=== PATIENT | male | born 1940 | race African-American/Black ===

== ENCOUNTER 2018-11-26 14:01 | Inpatient (IN) ==
--- NOTE | 2018-11-26 14:34 | Emergency Department Note ---
Disposition Clinical Impression: Sinus bradycardia, Dehydration, Acute renal insufficiency Disposition: Admitted As Inpatient Condition: Fair Forms: ED Satisfaction Letter Time of Disposition: 15:56 General Adult HPI - General Chief complaint: ED Syncope Stated complaint: Low BP Time Seen by Provider: 11/26/18 14:11 Source: EMS - History of Present Illness Pain Scale: 0 - Related Data Home Medications Medication Instructions Recorded Confirmed Acetaminophen [Tylenol] 650 mg PO Q6HR 09/19/18 09/19/18 Allopurinol [Zyloprim 100 MG] 100 mg PO DAILY 09/19/18 09/19/18 Fluticasone/Salmeterol [Advair 1 each IH BID 09/19/18 09/19/18 500-50 Diskus] Furosemide [Lasix] 20 mg PO DAILY 09/19/18 09/19/18 Gabapentin [Neurontin] 100 mg PO BID 09/19/18 09/19/18 HYDROcodone/Acet 5/325 mg [[place] 1 tab PO Q6H PRN 09/19/18 09/19/18 5-325 mg] Ibuprofen [Motrin] 400 mg PO BID 09/19/18 09/19/18 Losartan Potassium [Cozaar] 100 mg PO DAILY 09/19/18 09/19/18 Metoprolol Tartrate [Lopressor] 50 mg PO BID 09/19/18 09/19/18 Mirtazapine [Remeron] 15 mg PO HS 09/19/18 09/19/18 Oxybutynin Chloride [Ditropan Xl] 5 mg PO DAILY 09/19/18 09/19/18 Simvastatin [Zocor] 10 mg PO DAILY 09/19/18 09/19/18 SitaGLIPtin [Januvia] 100 mg PO DAILY 09/19/18 09/19/18 Tamsulosin HCl [Flomax] 0.4 mg PO DAILY 09/19/18 09/19/18 Tizanidine HCl 2 mg PO DAILY 09/19/18 09/19/18 Umeclidinium [place] [Incruse 62.5 mcg IH DAILY 09/19/18 09/19/18 Ellipta] carBAMazepine [CarBAMazepine] 100 mg PO BID 09/19/18 09/19/18 Allergies Allergy/AdvReac Type Severity Reaction Status Date / Time No Known Allergies Allergy Verified 02/18/15 14:38 Past Medical History - Past Medical History Medical history: Reports: asthma, COPD, CVA, diabetes, hypertension Surgical history: Reports: no surgical history Psychiatric history: Reports: no psych history - Social History Smoking Status: Current every day smoker Smokeless Tobacco Status: No Alcohol use: Reports: none Drug use: Reports: none Physical Exam - General General appearance: alert Course Vital Signs Temperature 97.7 F 11/26/18 14:19 Pulse Rate 92 11/26/18 14:19 Respiratory Rate 20 11/26/18 14:19 Blood Pressure 111/67 11/26/18 14:19 O2 Sat by Pulse Oximetry 94 11/26/18 14:19 Temperature 97.7 F 11/26/18 14:19 Pulse Rate 46 11/26/18 15:38 Respiratory Rate 18 11/26/18 15:38 Blood Pressure 103/54 11/26/18 15:38 O2 Sat by Pulse Oximetry 93 11/26/18 15:38 Oxygen Delivery Oxygen Delivery Nasal Cannula Medical Decision Making - Lab Data Result diagrams: 11/26/18 14:47 11/26/18 14:47 Lab Results 11/26/18 11/26/18 Range/Units 14:47 14:47 WBC 7.3 (4.3-11.1) K/mcL RBC 3.57 L (4.19-5.50) M/mcL Hgb 11.3 L (12.9-16.9) g/dL Hct 35.9 L (37.5-50.1) % MCV 100.6 H (83.0-100.0) fL MCH 31.7 (28.0-33.3) pg MCHC 31.5 L (31.6-35.5) g/dL RDW 14.3 (11.5-14.5) % Plt Count 141 (140-400) K/mcL MPV 11.4 (9.4-12.4) fL Immature Gran % 0.3 (0-4) % Seg Neutrophils % 69.0 % Lymphocytes % 15.0 % Monocytes % 10.6 % Eosinophils % 4.4 % Basophils % 0.7 % Neutrophils # 5.0 (1.6-8.9) K/mcL Lymphocytes # 1.1 (0.6-4.6) K/mcL Monocytes # 0.8 (0.0-1.3) K/mcL Eosinophils # 0.3 (0.0-0.6) K/mcL Basophils # 0.1 (0.0-0.2) K/mcL Sodium 138 (136-145) mEq/L Potassium 4.5 (3.5-5.1) mEq/L Chloride 101 (98-107) mEq/L Carbon Dioxide 30 H (23-29) mEq/L BUN 44 H (8-23) mg/dL Creatinine 2.49 H (0.70-1.30) mg/dL Est GFR ( Amer) 31 L (> 60) Est GFR (Non-Af Amer) 25 L (> 60) BUN/Creatinine Ratio 18 (6-26) Glucose 88 (70-105) mg/dL Calculated Osmolality 297 (280-300) Calcium 9.8 (8.6-10.3) mg/dL Magnesium 2.5 (1.6-2.6) mg/dL Total Bilirubin 0.2 L (0.3-1.0) mg/dL Direct Bilirubin 0.1 (0.0-0.2) mg/dL Indirect Bilirubin 0.1 (0.0-1.2) mg/dL AST 21 (13-39) Units/L ALT 18 (7-52) Units/L Alkaline Phosphatase 103 (34-104) Units/L Troponin I < 0.03 (< 0.04) ng/mL Serum Total Protein 6.6 (6.4-8.9) g/dL Albumin 3.5 (3.5-5.7) g/dL Globulin 3.1 (2.4-3.5) g/dL Albumin/Globulin Ratio 1.1 (1.1-2.2) Carbamazepine 6 (4-12) mcg/mL Attestation Statement - Attestation Attestation: I have seen this patient with the resident physician, I have personally evaluated this patient. I had reviewed the chart and document dictation by the resident physician and aM in agreement with the information documented by the resident physician. Please see documentation by the resident physician for complete chart including past medical history, family medical history, review of systems, current history and physical and laboratory and imaging studies. I was present for all procedures, provided direct supervision for all procedures, was present for the entirety of all procedures and provided direct guidance during the procedures. Please see documentation by the resident physician for any procedures performed. I have reviewed all interpretations of EKGs, and reviewed all EKGs performed on patient's as well. I have also reviewed reports of imaging as provided by radiology. Patient sent to the emergency department for concerns for low blood pressure and low heart rate. Unclear as to the exact timing of this, care home was unable to provide that information. Patient without reported recent fevers or chills, but is being treated for wound of his left lower extremity. 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 They noticed that his blood pressure was in the 80s today and that his heart rate was in the 40s they report this is unusual for the patient. No reported medication changes no reported acute trauma. The patient according to the paramedics, when they first arrived seemed more out of it than usual but after they shook him and woke him up he returned back to his mental baseline they have seen him several times in the past and neck she just recently took him for a knee injection, and report that he seems to be at the same mental baseline he was at that point time. The patient denies any fevers chills cough sputum production chest pain or shortness of breath he denies any acute numbness or weakness. He is not a great historian in regards to recent issues, but is able to answer all questions and is oriented 3, discussed consideration of advanced cardiac life support with this patient, and resuscitation efforts, he reports that he would not want to be intubated, would not want CPR but would like everything up until that. Patient had an IV placed, placed on a monitor, given IV fluids. Upon arrival heart rate is in the mid 40s, appears to be sinus bradycardia, EKG without evidence of acute ischemia or dysrhythmia or hyperkalemia apart from the sinus bradycardia, there is no obvious widening, no peaked T waves no other evidence to suggest hyperkalemia. Blood pressure upon arrival to the room was 111/60. Basic laboratory studies were ordered chest x-ray was ordered. Tegretol level was ordered as the patient is on Tegretol. Tegretol level was 6. Several blood pressures remained with systolic above 100, he remained with heart rates in the 40s, but remained with a sinus bradycardia on the monitor and on EKG. Basic laboratory studies show acute renal injury, with a creatinine of 2.5 up from 1.0 from an outpatient from 2 weeks ago. Continued IV hydration. Electrolytes were all within acceptable limits. Chest x-ray as interpreted by radiology showed no acute findings. Cardiac enzymes within acceptable limits. Patient was admitted to the hospital for further evaluation and management of bradycardia, prehospital hypotension, with dehydration with acute renal insufficiency. No indication at this point in time for a dopamine, or atropine as he is mentating, without any recorded hypotension here in the ER, with clinical evidence of dehydration, with no I disturbance, with his EKG being a sinus bradycardia, with no evidence of altered mental status. He is on a beta mery will recommend holding his beta mery at this point in time. No reported overdose, no indication for glucagon, or Intralipid at this time.
[2018-11-26] MEDS ORDERED: 0.9 % Sodium Chloride 1,000 ML IVC ONE (14:51)
[2018-11-26 15:02] LABS: Basophils # 0.1 K/mcL (0.0-0.2); Basophils % 0.7 %; Eosinophils # 0.3 K/mcL (0.0-0.6); Eosinophils % 4.4 %; Hematocrit 35.9 % (37.5-50.1); Hemoglobin 11.3 g/dL (12.9-16.9); Immature Granulocytes % 0.3 % (0-4); Lymphocytes # 1.1 K/mcL (0.6-4.6); Mean Corpuscular HGB Conc 31.5 g/dL (31.6-35.5); Mean Corpuscular Hemoglobin 31.7 pg (28.0-33.3); Mean Corpuscular Volume 100.6 fL (83.0-100.0); Mean Platelet Volume 11.4 fL (9.4-12.4); Monocytes # 0.8 K/mcL (0.0-1.3); Monocytes % 10.6 %; Platelet Count 141 K/mcL (140-400); Red Blood Count 3.57 M/mcL (4.19-5.50); Red Cell Distribution Width 14.3 % (11.5-14.5)
[2018-11-26 15:19] LABS: Alanine Aminotransferase 18 Units/L (7-52); Albumin 3.5 g/dL (3.5-5.7); Albumin/Globulin Ratio 1.1 (1.1-2.2); Alkaline Phosphatase 103 Units/L (34-104); Aspartate Amino Transferase 21 Units/L (13-39); BUN/Creatinine Ratio 18 (6-26); Bilirubin,Direct 0.1 mg/dL (0.0-0.2); Bilirubin,Indirect 0.1 mg/dL (0.0-1.2); Bilirubin,Total 0.2 mg/dL (0.3-1.0); Blood Urea Nitrogen 44 mg/dL (8-23); Calcium 9.8 mg/dL (8.6-10.3); Carbamazepine (Tegretol) 6 mcg/mL (4-12); Carbon Dioxide 30 mEq/L (23-29); Chloride 101 mEq/L (98-107); Globulin 3.1 g/dL (2.4-3.5); Glucose 88 mg/dL (70-105); Magnesium 2.5 mg/dL (1.6-2.6); Osmolality,Calculated 297 (280-300); Potassium 4.5 mEq/L (3.5-5.1); Sodium 138 mEq/L (136-145); Total Protein 6.6 g/dL (6.4-8.9); Troponin I < 0.03 ng/mL (< 0.04); eGFR For Non-African Americans 25 (> 60)
[2018-11-26 16:00] LABS: Bacteria,Urine None Seen per hpf (None-Few); Bilirubin,Urine Negative (Negative); Blood,Urine Negative (Negative); Color,Urine Yellow (Yellow); Glucose,Urine (UA) Normal (Normal); Ketones,Urine Negative (Negative); Leukocyte Esterase,Urine Negative (Negative); Nitrite,Urine Negative (Negative); Protein,Urine Negative (Neg-Trace); RBC,Urine 0-3 per hpf (0-3); Specific Gravity,Urine 1.013 (1.010-1.025); Squamous Epithelial Cell,Urine Many per lpf (None-Few); Urobilinogen,Urine Normal (Normal)
[2018-11-26 16:03] LABS: Clarity,Urine Clear (Clear)
--- NOTE | 2018-11-26 16:03 | Emergency Department Note ---
Disposition Clinical Impression: Sinus bradycardia, Dehydration, Acute renal insufficiency Disposition: Admitted As Inpatient Condition: Fair Time of Disposition: 16:05 General Adult HPI - General Chief complaint: ED Syncope Stated complaint: Low BP Time Seen by Provider: 11/26/18 14:11 Source: EMS - History of Present Illness HPI Narrative: 78 her old male presented to the emergency department from nursing facility resident he was having low blood pressure and low heart rate. Said he was a little bit more tired than normal. When EMS arrived they said that they are blood pressure they received a was 90/60. Normal heart rate and they said that he was more arousable and back to baseline according to EMS when 8 as they see him regularly to take him to appointments. He is alert and oriented 3. He is not complaining of any pain at this time they do not note any fevers cough congestion. He says he just feels like his normal self. He is currently getting seen by wound care for his left leg he is bedbound but does occasionally get in a wheelchair and move around says been less about her last 2 days. There is been no falls or recent trauma. Otherwise patient no other complaints. Pain Scale: 0 - Related Data Home Medications Medication Instructions Recorded Confirmed Acetaminophen [Tylenol] 650 mg PO Q6HR 09/19/18 11/26/18 Allopurinol [Zyloprim 100 MG] 100 mg PO DAILY 09/19/18 11/26/18 Fluticasone/Salmeterol [Advair 1 each IH BID 09/19/18 11/26/18 500-50 Diskus] Furosemide [Lasix] 20 mg PO DAILY 09/19/18 11/26/18 Gabapentin [Neurontin] 100 mg PO BID 09/19/18 11/26/18 HYDROcodone/Acet 5/325 mg [[place] 1 tab PO Q6H PRN 09/19/18 11/26/18 5-325 mg] Ibuprofen [Motrin] 400 mg PO BID 09/19/18 11/26/18 Losartan Potassium [Cozaar] 100 mg PO DAILY 09/19/18 11/26/18 Metoprolol Tartrate [Lopressor] 50 mg PO BID 09/19/18 11/26/18 Mirtazapine [Remeron] 15 mg PO HS 09/19/18 11/26/18 Oxybutynin Chloride [Ditropan Xl] 5 mg PO DAILY 09/19/18 11/26/18 Simvastatin [Zocor] 10 mg PO DAILY 09/19/18 11/26/18 SitaGLIPtin [Januvia] 100 mg PO DAILY 09/19/18 11/26/18 Tamsulosin HCl [Flomax] 0.4 mg PO DAILY 09/19/18 11/26/18 Tizanidine HCl 2 mg PO DAILY 09/19/18 11/26/18 Umeclidinium [place] [Incruse 62.5 mcg IH DAILY 09/19/18 11/26/18 Ellipta] carBAMazepine [CarBAMazepine] 100 mg PO BID 09/19/18 11/26/18 Aspirin [Lo-Dose Aspirin EC] 81 mg PO DAILY 11/26/18 11/26/18 Calcium Carbonate/Vitamin D3 1 tab PO BID 11/26/18 11/26/18 [Calcium 600 + Vit D Softgel] Glucagon, Human Recombinant 1 mg IM 11/26/18 11/26/18 [GlucaGen] Magnesium Oxide [Magnesium] 400 mg PO BID 11/26/18 11/26/18 Allergies Allergy/AdvReac Type Severity Reaction Status Date / Time No Known Allergies Allergy Verified 02/18/15 14:38 All systems ED: reviewed and negative except as stated. Review of Systems: As Per HPI Past Medical History - Past Medical History Attestation: Yes The following information was validated with the patient. Source: patient Medical history: Reports: asthma, COPD, CVA, diabetes, hypertension Surgical history: Reports: no surgical history Psychiatric history: Reports: no psych history - Social History Smoking Status: Current every day smoker Smokeless Tobacco Status: No Alcohol use: Reports: none Drug use: Reports: none Physical Exam - General Limitations: no limitations General appearance: alert - Head Head exam: atraumatic, normocephalic, normal inspection - Eye Eye exam: Present: normal appearance, PERRL, EOMI - ENT ENT exam: normal exam, normal oropharynx, mucous membranes moist - Neck Neck exam: Present: normal inspection, full ROM, trachea midline - Chest Chest inspection: Present: normal inspection, symmetric chest wall rise - Respiratory Respiratory exam: Present: normal lung sounds bilaterally - Cardiovascular Cardiovascular exam: Present: regular rate, normal rhythm, normal heart sounds - Abdominal Exam Abdominal exam: Present: soft, Non-Tender. Absent: tenderness, distention, guarding, rebound, rigidity - Extremities Exam Extremities exam: Present: normal inspection, full ROM, other (Dress wound on the left leg is dated an initial. Did not remove this at this time as there is no seepage coming from it. No ulcers on the heels or anywhere else on the back side.). Absent: tenderness, pedal edema - Back Exam Back exam: Present: normal inspection, full ROM. Absent: tenderness, CVA tenderness (R), CVA tenderness (L) - Neurological Exam Neurological exam: Present: alert, oriented X3 - Skin Skin exam: Present: warm, dry, intact, normal color Course Vital Signs Temperature 97.7 F 11/26/18 14:19 Pulse Rate 92 11/26/18 14:19 Respiratory Rate 20 11/26/18 14:19 Blood Pressure 111/67 11/26/18 14:19 O2 Sat by Pulse Oximetry 94 11/26/18 14:19 Temperature 97.7 F 11/26/18 14:19 Pulse Rate 46 11/26/18 15:38 Respiratory Rate 18 11/26/18 15:38 Blood Pressure 103/54 11/26/18 15:38 O2 Sat by Pulse Oximetry 93 11/26/18 15:38 Oxygen Delivery Oxygen Delivery Nasal Cannula Medical Decision Making - MDM Narrative Medical decision making narrative: Labs came back showing acute kidney injury all electrolytes were normal CBC was normal to chest x-ray no acute findings. Patient was given 1 L of IV fluids blood pressure has responded as the last one that I looked at was 106/60. I did speak with the patient and due to the acute kidney injury and needing IV fluids and continue to get blood pressure monitoring [place] patient needed to be admitted for further evaluation. Patient is alert and oriented and does agree with this. I did speak with the patient about his CODE STATUS he says that he wants to be a DNR CCA and DNI. I spoke with the hospitalist Dr. leslei who agreed to admit the patient to their service. Patient admitted in stable condition. Chest X-Ray 11/26/18 14:25 IMPRESSION: No acute abnormality identified. D/ / Eriberto Soto MD / Eriberto Soto MD Interpreting Provider: Eriberto Soto MD - Medical Records Medical records reviewed: Yes I reviewed the patient's medical records. - Lab Data Lab results reviewed: Yes I reviewed the patient's lab results. Result diagrams: 11/27/18 08:38 11/27/18 08:38 Lab Results 11/26/18 11/26/18 11/26/18 Range/Units 14:47 14:47 15:28 WBC 7.3 (4.3-11.1) K/mcL RBC 3.57 L (4.19-5.50) M/mcL Hgb 11.3 L (12.9-16.9) g/dL Hct 35.9 L (37.5-50.1) % MCV 100.6 H (83.0-100.0) fL MCH 31.7 (28.0-33.3) pg MCHC 31.5 L (31.6-35.5) g/dL RDW 14.3 (11.5-14.5) % Plt Count 141 (140-400) K/mcL MPV 11.4 (9.4-12.4) fL Immature Gran % 0.3 (0-4) % Seg Neutrophils % 69.0 % Lymphocytes % 15.0 % Monocytes % 10.6 % Eosinophils % 4.4 % Basophils % 0.7 % Neutrophils # 5.0 (1.6-8.9) K/mcL Lymphocytes # 1.1 (0.6-4.6) K/mcL Monocytes # 0.8 (0.0-1.3) K/mcL Eosinophils # 0.3 (0.0-0.6) K/mcL Basophils # 0.1 (0.0-0.2) K/mcL Sodium 138 (136-145) mEq/L Potassium 4.5 (3.5-5.1) mEq/L Chloride 101 (98-107) mEq/L Carbon Dioxide 30 H (23-29) mEq/L BUN 44 H (8-23) mg/dL Creatinine 2.49 H (0.70-1.30) mg/dL Est GFR ( Amer) 31 L (> 60) Est GFR (Non-Af Amer) 25 L (> 60) BUN/Creatinine Ratio 18 (6-26) Glucose 88 (70-105) mg/dL Calculated Osmolality 297 (280-300) Calcium 9.8 (8.6-10.3) mg/dL Magnesium 2.5 (1.6-2.6) mg/dL Total Bilirubin 0.2 L (0.3-1.0) mg/dL Direct Bilirubin 0.1 (0.0-0.2) mg/dL Indirect Bilirubin 0.1 (0.0-1.2) mg/dL AST 21 (13-39) Units/L ALT 18 (7-52) Units/L Alkaline Phosphatase 103 (34-104) Units/L Troponin I < 0.03 (< 0.04) ng/mL Serum Total Protein 6.6 (6.4-8.9) g/dL Albumin 3.5 (3.5-5.7) g/dL Globulin 3.1 (2.4-3.5) g/dL Albumin/Globulin Ratio 1.1 (1.1-2.2) Urine Color Yellow (Yellow) Urine Clarity Clear (Clear) Urine pH 5.0 (5.0-8.0) pH Units Ur Specific [place] 1.013 (1.010-1.025) Urine Protein Negative (Neg-Trace) mg/dL Urine Glucose (UA) Normal (Normal) mg/dL Urine Ketones Negative (Negative) mg/dL Urine Blood Negative (Negative) Urine Nitrite Negative (Negative) Urine Bilirubin Negative (Negative) Urine Urobilinogen Normal (Normal) mg/dL Ur Leukocyte Esterase Negative (Negative) Urine Microscopic RBC 0-3 (0-3) per hpf Ur Squamous Epith Cells Many H (None-Few) per lpf Urine Bacteria None Seen (None-Few) per hpf Ur Culture Indicated? NO (NO) Carbamazepine 6 (4-12) mcg/mL - Radiology Data Radiology results reviewed: Yes I reviewed the patient's radiology results. - EKG Data EKG #1 EKG attestation: Yes I reviewed and interpreted this EKG. EKG results narrative: EKG done at 1421 review myself and attending shows sinus rhythm at a rate of [address] changes no acute T-wave changes no other signs of ischemia. No signs of hypertrophy, heart strain, heart block. No WPW/[place]/HOCM. No changes based on old EKG done 8/19/15 Attestation Statement - Attestation Attestation: I have seen this patient with the resident physician, I have personally evaluated this patient. I had reviewed the chart and document dictation by the resident physician and aM in agreement with the information documented by the resident physician. Please see documentation by the resident physician for complete chart including past medical history, family medical history, review of systems, current history and physical and laboratory and imaging studies. I was present for all procedures, provided direct supervision for all proc edures, was present for the entirety of all procedures and provided direct guidance during the procedures. Please see documentation by the resident physician for any procedures performed. I have reviewed all interpretations of EKGs, and reviewed all EKGs performed on patient's as well. I have also reviewed reports of imaging as provided by radiology.
[2018-11-26] MEDS ORDERED: 0.9 % Sodium Chloride 500 ML IVC ONE (17:26)
--- NOTE | 2018-11-26 17:27 | Internal Med History&Physical ---
Date of Encounter: 11/26/18 Time of Encounter: 17:24 Internal Medicine - H&P: HPI Chief complaint: I am not sure why I am here Admitted From: Long-term Nursing Facility Plans for Post Hospital Care: Transfer Shelter Care History of present illness: Mr. Cesar is a 78 year old male past medical history of diabetes, hypertension, CVA with left-sided residual weakness, COPD came in from [facility] for concerns of low blood pressure and heart rate. Patient is alert and oriented however is a poor historian and not able to give a reliable history. She was obtained from ER physicians chart, [facility] report and partially from patient. Based on the paperwork from [facility] patient had recent workup done for left hip pain as well as lung nodule and CBC and BMP. Recently his creatinine was around 1.0 about 2 week ago. Left hip x-ray was suspicion of fracture. When asked patient he mentioned he does not know why he is here. He does complain of some soreness of left hip. His left arm and left leg are weak from his previous stroke and has been like that for many years. He does admit to taking pain medication but unclear which one. He does not know his medication. Patient was evaluated any in ER. Had blood pressure in low 100s systolic. Was found to have sinus rhythm with bradycardia occasionally. Labs were significant for creatinine of 2.49. Patient notably is on Lasix, scheduled ibuprofen, losartan, metoprolol at the nursing facility. Admission was requested for further management of SUMEET. CODE STATUS was discussed with. Any clearly mentioned he did not want any artificial support on repeated questioning which he similarly expressed to ER physicians. He mentions his next of cane would be under sister. Past Med Surg Social Fam HX - Past Medical History Medical history: COPD, CVA, diabetes, hypertension Additional medical history: aneursym Psychiatric history: no psych history - Past Surgical History Surgical History: no surgical history Additional surgical history: aneursym surgery - Social History Smoking Status: Current every day smoker Smokeless Tobacco Status: No Alcohol use: none Drug use: none - Additional Family History Additional family history: not contributory Internal Medicine - H&P: Meds Acetaminophen [Tylenol] 650 mg PO Q6HR 09/19/18 [History] Allopurinol [Zyloprim 100 MG] 100 mg PO DAILY 09/19/18 [History] Fluticasone/Salmeterol [Advair 500-50 Diskus] 1 each IH BID 09/19/18 [History] Furosemide [Lasix] 20 mg PO DAILY 09/19/18 [History] Gabapentin [Neurontin] 100 mg PO BID 09/19/18 [History] HYDROcodone/Acet 5/325 mg [[place] 5-325 mg] 1 tab PO Q6H PRN 09/19/18 [History] Ibuprofen [Motrin] 400 mg PO BID 09/19/18 [History] Losartan Potassium [Cozaar] 100 mg PO DAILY 09/19/18 [History] Metoprolol Tartrate [Lopressor] 50 mg PO BID 09/19/18 [History] Mirtazapine [Remeron] 15 mg PO HS 09/19/18 [History] Oxybutynin Chloride [Ditropan Xl] 5 mg PO DAILY 09/19/18 [History] Simvastatin [Zocor] 10 mg PO DAILY 09/19/18 [History] SitaGLIPtin [Januvia] 100 mg PO DAILY 09/19/18 [History] Tamsulosin HCl [Flomax] 0.4 mg PO DAILY 09/19/18 [History] Tizanidine HCl 2 mg PO DAILY 09/19/18 [History] Umeclidinium [place] [Incruse Ellipta] 62.5 mcg IH DAILY 09/19/18 [History] carBAMazepine [CarBAMazepine] 100 mg PO BID 09/19/18 [History] Aspirin [Lo-Dose Aspirin EC] 81 mg PO DAILY 11/26/18 [History] Calcium Carbonate/Vitamin D3 [Calcium 600 + Vit D Softgel] 1 tab PO BID 11/26/18 [History] Glucagon, Human Recombinant [GlucaGen] 1 mg IM 11/26/18 [History] Magnesium Oxide [Magnesium] 400 mg PO BID 11/26/18 [History] Allergy/AdvReac Type Severity Reaction Status Date / Time No Known Allergies Allergy Verified 02/18/15 14:38 All Systems PM: A 10-system review of systems was performed and is negative for pertinent findi ngs except as documented above in the HPI. - Constitutional Vitals: Temp Pulse Resp BP Pulse Ox 97.7 F 62 20 99/46 100 11/26/18 14:19 11/26/18 16:53 11/26/18 16:53 11/26/18 16:53 11/26/18 16:53 Exam: Constitutional: Vitals as noted. Conversant. No Apparent Distress. Poorly kept Eyes : Sclera white, conjunctiva clear, no lid lag, PEARLA. ENT : Grossly normal hearing. Oropharyngeal exam unremarkable. dry mucus membranes. No JVD, no cervical lymphadenopathy. no thyromegaly or mass. Respiratory : CTAB. No accessory muscle use, rales, rhonchi or wheezes Cardiovascular : RRR, +S1, +S2. no murmur, gallop, rubs. No chest wall tenderness GI/Abdominal : Soft, Non-tender, Non-distended, normal bowel sounds, no peritoneal signs. no orgenomegaly or mass appreciated. no hernia. Musculoskeletal: Lt arm contracture and Lt knee contracture, no calf tenderness. Neurological: AO X3, Lt arm contracuture and weaknes Skin: Lt toes with bandage. Internal Med - H&P Results - Labs CBC & Chem 7: 11/26/18 14:47 11/26/18 14:47 Labs: Short CBC 11/26/18 Range/Units 14:47 WBC 7.3 (4.3-11.1) K/mcL Hgb 11.3 L (12.9-16.9) g/dL Hct 35.9 L (37.5-50.1) % Plt Count 141 (140-400) K/mcL Neutrophils # 5.0 (1.6-8.9) K/mcL BMP 11/26/18 14:47 Sodium 138 Potassium 4.5 Chloride 101 Carbon Dioxide 30 H BUN 44 H Creatinine 2.49 H Glucose 88 Calcium 9.8 Cardiac Enzymes 11/26/18 Range/Units 14:47 Troponin I < 0.03 (< 0.04) ng/mL Liver Function 11/26/18 Range/Units 14:47 Total Bilirubin 0.2 L (0.3-1.0) mg/dL Direct Bilirubin 0.1 (0.0-0.2) mg/dL AST 21 (13-39) Units/L ALT 18 (7-52) Units/L Alkaline Phosphatase 103 (34-104) Units/L Albumin 3.5 (3.5-5.7) g/dL Urine 11/26/18 Range/Units 15:28 Urine Color Yellow (Yellow) Urine Clarity Clear (Clear) Urine pH 5.0 (5.0-8.0) pH Units Ur Specific [place] 1.013 (1.010-1.025) Urine Protein Negative (Neg-Trace) mg/dL Urine Glucose (UA) Normal (Normal) mg/dL - EKG Data -: EKG Interpreted by Myself EKG shows normal: sinus rhythm (bradycardia) - Impressions ITS Impressions Chest X-Ray 11/26/18 14:25 IMPRESSION: No acute abnormality identified. D/ / Eriberto Soto MD / Eriberto Soto MD Interpreting Provider: Eriberto Soto MD - Assessment and Plan (1) Acute renal insufficiency Current Visit: Yes Status: Acute Assessment and plan: Could be prerenal, renal or postrenal Obtain retroperitoneal ultrasound given history of BPH. Patient received 1 L of normal saline bolus in ER. We will do 1 more liter and then maintenance IV fluids Urine analysis is essentially unremarkable. We will obtain a urine sodium, creatinine and urea. obtain uric acid and cpk. Patient is on NSAIDs, Lasix and ARB. We will hold all for now (2) Hypotension Current Visit: Yes Status: Acute Assessment and plan: Blood pressure has been stable in the ER. We will continue to give patient IV fluid with 1 more bolus and then maintenance fluid. Hold home antihypertensive medications Qualifiers: Hypotension type: hypotension due to hypovolemia Qualified Code(s): I95.89 - Other hypotension; E86.1 - Hypovolemia (3) Diabetes Current Visit: Yes Status: Acute Assessment and plan: Hold home oral hypoglycemics Keep patient on Accu-Cheks and sliding scale insulin low intensity Qualifiers: Diabetes mellitus type: type 2 Chronic kidney disease stage: unspecified stage Qualified Code(s): E11.22 - Type 2 diabetes mellitus with diabetic chronic kidney disease (4) HTN (hypertension) Current Visit: Yes Status: Acute Assessment and plan: Hold home antihypertensives given low blood pressure Qualifiers: Hypertension type: essential hypertension Qualified Code(s): I10 - Essential (primary) hypertension (5) History of CVA with residual deficit Current Visit: Yes Status: Acute Assessment and plan: No new deficits Continue home aspirin and statin (6) COPD (chronic obstructive pulmonary disease) with emphysema Current Visit: Yes Status: Acute Assessment and plan: Continue home inhalers and as needed bronchodilators Qualifiers: Emphysema type: unspecified Qualified Code(s): J43.9 - Emphysema, unspecified (7) Left hip pain Current Visit: Yes Status: Acute Assessment and plan: Patient with recent hip x-ray with possible fracture. We will obtain left hip MRI to further evaluate (8) Sinus bradycardia Current Visit: Yes Status: Acute Assessment and plan: Patient on beta mery at home. We will hold for now and continue to monitor on telemetry. Patient otherwise asymptomatic (9) DVT prophylaxis Current Visit: Yes Status: Acute (10) Anemia Current Visit: Yes Status: Acute Assessment and plan: I will obtain vitamin B12, folate and iron panel in the morning given macrocytosis Qualifiers: Anemia type: unspecified type Qualified Code(s): D64.9 - Anemia, unspecified - Time Spent With Patient Total time spent is greater than 50% in coordination of care (as documented) at patient's floor/unit and/or counseling patient:
[2018-11-26] MEDS ORDERED: *HR* HYDROcodone/Acet 5/325 mg TABLET PO PRN (17:29)
[2018-11-26] MEDS ORDERED: Ipratropium/Albuterol Neb 3 ML IH PRN (18:17)
[2018-11-26] MEDS: Ringers Solution, Lactated 1,000 ML IVC SCH (18:49)
[2018-11-26] MEDS: Acetaminophen 325 MG TABLET PO SCH (18:49)
[2018-11-26] MEDS ORDERED: D5% in Water 1,000 ML IVC PRN (18:50)
[2018-11-26] MEDS ORDERED: Dextrose Gel 15 GM/37.5 ML TUBE PO PRN ×2 (18:50)
[2018-11-26] MEDS ORDERED: *HR* Dextrose 50 % in Water (Syg) 50 ML SYRINGE IVP PRN (18:50)
[2018-11-26] MEDS: Gabapentin 100 MG CAPSULE PO SCH (19:49)
[2018-11-26] MEDS: Mirtazapine 15 MG TABLET PO SCH (19:49)
[2018-11-26] MEDS: Budesonide/Formoterol 160/4.5 1 PUFF INH IH SCH (20:04)
[2018-11-26] MEDS: *HR* Heparin 5,000 UNIT/ML VIAL SQ SCH (22:40)
[2018-11-26] MEDS: CarBAMazepine 100 MG TABLET PO SCH (22:40)
[2018-11-26 23:44] LABS: Sodium, Urine 58.4 mEq/L
[2018-11-27] MEDS: Acetaminophen 325 MG TABLET PO SCH ×4 (00:50→18:27)
[2018-11-27] MEDS: *HR* Heparin 5,000 UNIT/ML VIAL SQ SCH ×3 (05:09→20:43)
[2018-11-27] MEDS: Ringers Solution, Lactated 1,000 ML IVC SCH ×2 (05:55→14:41)
[2018-11-27] MEDS: Budesonide/Formoterol 160/4.5 1 PUFF INH IH SCH ×2 (07:49→21:46)
[2018-11-27] MEDS: Tiotropium 18 MCG inhalation IH SCH (07:49)
[2018-11-27] MEDS: Insulin LISPRO 300 UNITS/3 ML VIAL SQ SCH ×3 (07:50→16:58)
[2018-11-27 09:08] LABS: Basophils % 0.6 %; Eosinophils # 0.2 K/mcL (0.0-0.6); Eosinophils % 3.1 %; Hematocrit 30.8 % (37.5-50.1); Immature Granulocytes % 0.4 % (0-4); Lymphocytes # 1.2 K/mcL (0.6-4.6); Lymphocytes % 17.5 %; Mean Corpuscular HGB Conc 31.5 g/dL (31.6-35.5); Mean Corpuscular Hemoglobin 31.5 pg (28.0-33.3); Mean Platelet Volume 11.8 fL (9.4-12.4); Monocytes # 0.7 K/mcL (0.0-1.3); Monocytes % 10.3 %; Neutrophils # 4.5 K/mcL (1.6-8.9); Platelet Count 124 K/mcL (140-400); Red Blood Count 3.08 M/mcL (4.19-5.50); Red Cell Distribution Width 14.1 % (11.5-14.5); Segmented Neutrophils % 68.1 %
[2018-11-27 09:14] LABS: Hemoglobin 9.7 g/dL (12.9-16.9)
[2018-11-27 09:48] LABS: Potassium 4.7 mEq/L (3.5-5.1)
[2018-11-27] MEDS: Gabapentin 100 MG CAPSULE PO SCH ×2 (10:06→20:41)
[2018-11-27] MEDS: Aspirin Enteric Coated 81 MG Tablet PO SCH (10:06)
[2018-11-27] MEDS: tiZANidine 4 MG TABLET PO SCH (10:07)
[2018-11-27] MEDS: CarBAMazepine 100 MG TABLET PO SCH ×2 (10:59→20:41)
--- NOTE | 2018-11-27 11:12 | Internal Med Progress Note ---
Hospitalist Progress Note - Encounter Date of Encounter: 11/27/18 Time of Encounter: 11:12 - Subjective Interval History: Patient seen and examined this morning at bedside. No acute overnight events. Denies new complaints. Left hip pain slightly improved. Denies any chest pain or difficulty breathing. Hemodynamics improved. - Exam Vitals: Temp Pulse Resp BP Pulse Ox 98.8 F 50 16 115/73 97 11/27/18 07:30 11/27/18 07:30 11/27/18 07:45 11/27/18 07:30 11/27/18 10:15 Exam: Constitutional: Vitals as noted. Conversant. No Apparent Distress. Respiratory : CTAB. No accessory muscle use, rales, rhonchi or wheezes Cardiovascular : RRR, +S1, +S2. no murmur, gallop, rubs. GI/Abdominal : Soft, Non-tender, Non-distended, no peritoneal signs. Musculoskeletal: Lt arm contracture and Lt knee contracture, no calf tenderness. Neurological: AO X3, Lt arm contracuture and weakness Skin: Lt toes with bandage. - Assessment and Plan (1) Acute renal insufficiency Current Visit: Yes Status: Acute (2) Hypotension Current Visit: Yes Status: Acute (3) Diabetes Current Visit: Yes Status: Acute (4) HTN (hypertension) Current Visit: Yes Status: Acute (5) History of CVA with residual deficit Current Visit: Yes Status: Acute (6) COPD (chronic obstructive pulmonary disease) with emphysema Current Visit: Yes Status: Acute (7) Left hip pain Current Visit: Yes Status: Acute (8) Sinus bradycardia Current Visit: Yes Status: Acute (9) DVT prophylaxis Current Visit: Yes Status: Acute (10) Anemia Current Visit: Yes Status: Acute - Summary of Assessment and Plan Summary of Assessment and Plan: Assessment Acute Hypotension sinus Bradycardia SUMEET Iron deficiency Anemia Lt leg wound DVT prophylaxis Chronic DM HTN h/o CVA with Rt side residual deficit COPD Brain aneurysm s/p repair Plan - Scr. improved with IVF. Will c/w IVF with LR at 100 cc. awaiting renal ult rasound. so far 150 cc output. Urine eosinophil negative. No urinary sediments on UA which is otherwise unremarkable. Likely prerenal. Patient was also on NSAID, Lasix and ARB - BP improved. c/w IVF and tele monitor. HR still below 50s on average. Hold BB and antihypertensives - Start iron supplementation with infusion for iron deficiency anemia. B12 and folate high. Hb drop likely dilutional after hydration - Wound consult for Lt leg wound. - cannot get mr given h/o brain aneurysm with coiling. Will get Ct hip - c/w home symbicort and allopurinol - c/w continue home remeron, oxybutynin, tamslosin, tizanidine and carabmazepine. - Time Spent with Patient Total time spent is greater than 50% in coordination of care (as documented) at patient's floor/unit and/or counseling patient: Internal Medicine: Result - Labs CBC & Chem 7: 11/27/18 08:38 11/27/18 08:38 Labs: Short CBC 11/26/18 11/27/18 Range/Units 14:47 08:38 WBC 7.3 6.7 (4.3-11.1) K/mcL Hgb 11.3 L 9.7 L D (12.9-16.9) g/dL Hct 35.9 L 30.8 L (37.5-50.1) % Plt Count 141 124 L (140-400) K/mcL Neutrophils # 5.0 4.5 (1.6-8.9) K/mcL BMP 11/26/18 11/27/18 14:47 08:38 Sodium 138 139 Potassium 4.5 4.7 Chloride 101 105 Carbon Dioxide 30 H 29 BUN 44 H 40 H Creatinine 2.49 H 1.70 H Glucose 88 88 Calcium 9.8 9.0 Cardiac Enzymes 11/26/18 Range/Units 14:47 Troponin I < 0.03 (< 0.04) ng/mL Liver Function 11/26/18 Range/Units 14:47 Total Bilirubin 0.2 L (0.3-1.0) mg/dL Direct Bilirubin 0.1 (0.0-0.2) mg/dL AST 21 (13-39) Units/L ALT 18 (7-52) Units/L Alkaline Phosphatase 103 (34-104) Units/L Albumin 3.5 (3.5-5.7) g/dL Urine 11/26/18 Range/Units 15:28 Urine Color Yellow (Yellow) Urine Clarity Clear (Clear) Urine pH 5.0 (5.0-8.0) pH Units Ur Specific [place] 1.013 (1.010-1.025) Urine Protein Negative (Neg-Trace) mg/dL Urine Glucose (UA) Normal (Normal) mg/dL - Impressions Impressions Chest X-Ray 11/26/18 14:25 IMPRESSION: No acute abnormality identified. D/ / Eriberto Soto MD / Eriberto Soto MD Interpreting Provider: Eriberto Soto MD Consult Discharge Plan - Plan Referrals: Jarrett Guo MD [Primary Care Provider] - (2) Hypotension Qualifiers: Hypotension type: hypotension due to hypovolemia Qualified Code(s): I95.89 - Other hypotension; E86.1 - Hypovolemia (3) Diabetes Qualifiers: Diabetes mellitus type: type 2 Chronic kidney disease stage: unspecified stage (4) HTN (hypertension) Qualifiers: Hypertension type: essential hypertension Qualified Code(s): I10 - Essential (primary) hypertension (6) COPD (chronic obstructive pulmonary disease) with emphysema Qualifiers: Emphysema type: unspecified Qualified Code(s): J43.9 - Emphysema, unspecified (10) Anemia Qualifiers: Anemia type: unspecified type Qualified Code(s): D64.9 - Anemia, unspecified
[2018-11-27 11:35] LABS: % Iron Saturation 24 % (20-55); Creatine Kinase 646 Units/L (30-223); Iron 54 mcg/dL (65-175); Transferrin 164 mg/dL (203-362)
[2018-11-27] MEDS: Mirtazapine 15 MG TABLET PO SCH (20:41)
[2018-11-28] MEDS: Acetaminophen 325 MG TABLET PO SCH ×5 (01:09→22:52)
[2018-11-28] MEDS: Ringers Solution, Lactated 1,000 ML IVC SCH (02:58)
[2018-11-28 04:59] LABS: Hematocrit 29.3 % (37.5-50.1); Hemoglobin 9.3 g/dL (12.9-16.9)
[2018-11-28] MEDS: *HR* Heparin 5,000 UNIT/ML VIAL SQ SCH ×3 (05:15→21:45)
[2018-11-28 05:36] LABS: BUN/Creatinine Ratio 28 (6-26); Blood Urea Nitrogen 30 mg/dL (8-23); Calcium 8.7 mg/dL (8.6-10.3); Carbon Dioxide 28 mEq/L (23-29); Chloride 107 mEq/L (98-107); Glucose 117 mg/dL (70-105); Potassium 4.2 mEq/L (3.5-5.1); eGFR For Non-African Americans > 60 (> 60)
[2018-11-28 05:47] LABS: Osmolality,Calculated 303 (280-300); Sodium 143 mEq/L (136-145)
[2018-11-28] MEDS: Budesonide/Formoterol 160/4.5 1 PUFF INH IH SCH ×2 (08:01→22:23)
[2018-11-28] MEDS: Tiotropium 18 MCG inhalation IH SCH (08:02)
--- NOTE | 2018-11-28 09:21 | Electrocardiograph Report ---
[place] [id number] Test Date: 2018-11-26 Pat Name: Charles Cesar Department: [id number] Room: 2NE24 Gender: M [employer] Specialist: : [id number] Requested By: Duarte Morales Order Number: [id number] Reading MD: Dyllan Mosqueda Measurements Intervals [place] Rate: 125 P: NE: QRS: 68 QRSD: 106 T: QT: 227 QTc: 250 Interpretive Statements Atrial fibrillation Artifact in lead(s) I II III aVR aVL aVF V1 V2 V4 V5 Electronically Signed On 11-28-2018 9:19:40 EDT by Dyllan Mosqueda
[2018-11-28] MEDS: Insulin LISPRO 300 UNITS/3 ML VIAL SQ SCH ×3 (10:02→17:06)
[2018-11-28] MEDS: tiZANidine 4 MG TABLET PO SCH (10:07)
[2018-11-28] MEDS: Aspirin Enteric Coated 81 MG Tablet PO SCH (10:07)
[2018-11-28] MEDS: Gabapentin 100 MG CAPSULE PO SCH ×2 (10:08→19:49)
[2018-11-28] MEDS: CarBAMazepine 100 MG TABLET PO SCH ×2 (10:08→19:49)
--- NOTE | 2018-11-28 14:23 | Internal Med Progress Note ---
Hospitalist Progress Note - Encounter Date of Encounter: 11/28/18 Time of Encounter: 09:22 - Subjective Interval History: Patient seen and examined this morning at bedside. No acute overnight events. Denies significant head pain however does have some foot pain however not able to give exact timeframe when it started. Had left foot wound seems retirement possibly started after minor trauma. Denies fevers chills nausea vomiting diarrhea. - Exam Vitals: Temp Pulse Resp BP Pulse Ox 98.4 F 41 16 126/54 100 11/28/18 07:27 11/28/18 07:27 11/28/18 08:01 11/28/18 07:27 11/28/18 08:01 Exam: Constitutional: Vitals as noted. Conversant. No Apparent Distress. Respiratory : CTAB. No accessory muscle use, rales, rhonchi or wheezes Cardiovascular : RRR, +S1, +S2. no murmur, gallop, rubs. GI/Abdominal : Soft, Non-tender, Non-distended, no peritoneal signs. Musculoskeletal: Lt arm contracture and Lt knee contracture, no calf tenderness. Neurological: AO X3, Lt arm contracuture and weakness Skin: Lt toes wound does not look infected however distal aspect of phalynx very mobile and painful on manipulation. - Assessment and Plan (1) Acute renal insufficiency Current Visit: Yes Status: Acute (2) Hypotension Current Visit: Yes Status: Acute (3) Diabetes Current Visit: Yes Status: Acute (4) HTN (hypertension) Current Visit: Yes Status: Acute (5) History of CVA with residual deficit Current Visit: Yes Status: Acute (6) COPD (chronic obstructive pulmonary disease) with emphysema Current Visit: Yes Status: Acute (7) Left hip pain Current Visit: Yes Status: Acute (8) Sinus bradycardia Current Visit: Yes Status: Acute (9) DVT prophylaxis Current Visit: Yes Status: Acute (10) Anemia Current Visit: Yes Status: Acute - Summary of Assessment and Plan Summary of Assessment and Plan: Assessment Acute Hypotension sinus Bradycardia SUMEET Iron deficiency Anemia Lt leg wound DVT prophylaxis Chronic DM HTN h/o CVA with Rt side residual deficit COPD Brain aneurysm s/p repair Plan - Scr. improved with IVF. Now at baseline. c/w IVF with LR at 75 cc. renal US unremarkable but with 100 cc postvoid residual with BPH. Monitor Urine output. Urine eosinophil negative. No urinary sediments on UA which is otherwise unremarkable. Likely prerenal. Patient was also on NSAID, Lasix and ARB. Will continue to hold - BP improved. c/w IVF and tele monitor. HR still around 50s on average. Hold BB and antihypertensives - c/w iron supplementation with infusion for iron deficiency anemia. B12 and folate high. Hb drop likely dilutional after hydration - will get Lt foot xr to evaluate for fractures. f/u Wound consult. - Ct hip without acute fracture. Mild-to mod arthritis of b/l hips. - c/w home symbicort and allopurinol - c/w continue home remeron, oxybutynin, tamslosin, tizanidine and carabmazepine. - Time Spent with Patient Total time spent is greater than 50% in coordination of care (as documented) at patient's floor/unit and/or counseling patient: Internal Medicine: Result - Labs CBC & Chem 7: 11/28/18 04:28 11/28/18 04:28 Labs: Short CBC 11/28/18 Range/Units 04:28 Hgb 9.3 L (12.9-16.9) g/dL Hct 29.3 L (37.5-50.1) % BMP 11/28/18 04:28 Sodium 143 Potassium 4.2 Chloride 107 Carbon Dioxide 28 BUN 30 H Creatinine 1.07 Glucose 117 H Calcium 8.7 - Impressions Impressions Retroperitoneum Ultrasound 11/27/18 16:30 IMPRESSION: 1. Unremarkable appearing kidneys 2. Large prostate with a postvoid residual of 100 cc D/ / Kennedy Workman MD / Kennedy Workman MD Interpreting Provider: Kennedy Workman MD Hip CT 11/27/18 18:30 IMPRESSION: 1. No acute osseous abnormality of the pelvis or bilateral hips identified. 2. [id number] osteoarthritis of the bilateral hips. 3. Osteopenia. 4. Severe atherosclerotic disease. 5. Circumferential wall thickening of the rectum which is nonspecific with a small to moderate amount of stool within the rectum. 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 D/ / Shawn Mejia MD / Shawn Mejia MD Interpreting Provider: Shawn Mejia MD Foot X-Ray 11/28/18 09:01 IMPRESSION: 1. Comminuted intraarticular fracture of the 2nd digit distal interphalangeal joint with grade 2 plantar subluxation. 2. Findings suspicious for a acute-subacute nondisplaced intra-articular fracture along the medial 1st distal phalanx base. D/ / 11/28/2018 13:23:33 Froylan Chaney MD / inés Interpreting Provider: Froylan Chaney MD Consult Discharge Plan - Plan Referrals: Jarrett Guo MD [Primary Care Provider] - (2) Hypotension Qualifiers: Hypotension type: hypotension due to hypovolemia Qualified Code(s): I95.89 - Other hypotension; E86.1 - Hypovolemia (3) Diabetes Qualifiers: Diabetes mellitus type: type 2 Chronic kidney disease stage: unspecified stage (4) HTN (hypertension) Qualifiers: Hypertension type: essential hypertension Qualified Code(s): I10 - Essential (primary) hypertension (6) COPD (chronic obstructive pulmonary disease) with emphysema Qualifiers: Emphysema type: unspecified Qualified Code(s): J43.9 - Emphysema, unspecified (10) Anemia Qualifiers: Anemia type: unspecified type Qualified Code(s): D64.9 - Anemia, unspecified
[2018-11-28] MEDS ORDERED: Ringers Solution, Lactated 1,000 ML IVC SCH (15:00)
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
[2018-11-28] MEDS: Mirtazapine 15 MG TABLET PO SCH (19:49)
[2018-11-29] MEDS: *HR* Heparin 5,000 UNIT/ML VIAL SQ SCH ×2 (05:08→14:06)
[2018-11-29] MEDS: Acetaminophen 325 MG TABLET PO SCH ×2 (05:13→11:42)
[2018-11-29] MEDS: Budesonide/Formoterol 160/4.5 1 PUFF INH IH SCH (07:28)
[2018-11-29] MEDS: Tiotropium 18 MCG inhalation IH SCH (07:30)
[2018-11-29] MEDS: Aspirin Enteric Coated 81 MG Tablet PO SCH (08:09)
[2018-11-29] MEDS: tiZANidine 4 MG TABLET PO SCH (08:10)
[2018-11-29] MEDS: Insulin LISPRO 300 UNITS/3 ML VIAL SQ SCH ×3 (08:11→16:53)
[2018-11-29] MEDS: Gabapentin 100 MG CAPSULE PO SCH (08:11)
[2018-11-29] MEDS: CarBAMazepine 100 MG TABLET PO SCH (08:14)
--- NOTE | 2018-11-29 16:48 | Discharge Summary ---
- NOTES TO OUTPATIENT PROVIDER Notes to Outpatient Provider: Patient's losartan, ibuprofen, Lasix held given AK I. Patient's metoprolol held given bradycardia. Consider amlodipine if needed for hypertension. Patient will need follow-up BMP for renal function within a week. Patient will need iron supplementation for couple months for Iron deficiency. If continues to have anemia and if has not had a colonoscopy as outpatient can consider colonoscopy as outpatient. 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 Diabetes mellitus complication status: with unspecified complications Qualified Code(s): E11.8 - Type 2 diabetes mellitus with unspecified complications (4) HTN (hypertension) Priority: Secondary Status: Acute Qualifiers: Hypertension type: essential hypertension Qualified Code(s): I10 - Essential (primary) hypertension (5) History of CVA with residual deficit Priority: Secondary Status: Acute (6) COPD (chronic obstructive pulmonary disease) with emphysema Priority: Secondary Status: Acute Qualifiers: Emphysema type: unspecified Qualified Code(s): J43.9 - Emphysema, unspecified (7) Left hip pain Priority: Primary Status: Acute (8) Sinus bradycardia Priority: Primary Status: Acute (9) DVT prophylaxis Priority: Secondary Status: Acute (10) Anemia Priority: Secondary Status: Acute Qualifiers: Anemia type: unspecified type Qualified Code(s): D64.9 - Anemia, unspecified (11) Fracture of toe of left foot Priority: Secondary Status: Acute Qualifiers: Encounter type: initial encounter Toe: lesser toe Fracture type: open Phalanx: distal Fracture alignment: nondisplaced Qualified Code(s): S92.535B - Nondisplaced fracture of distal phalanx of left lesser toe(s), initial encounter for open fracture Hospital course: Mr. Cesar is a 78 year old male with past medical history of diabetes, hypertension, CVA with residual left-sided weakness, COPD came in with low blood pressure and heart rate from [facility]. Patient was found to have acute kidney injury. Patient was started on IV fluids and his NSAIDs Lasix and losartan was held. On antihypertensive medication were held. Patient also had mild bradycardia sinus in nature. Patient on metoprolol at baseline which was held. Patient was found to have elevated CK however not significantly high. Patient was found to have iron deficiency anemia and was started on IV infusion of iron. Patient likely had prerenal azotemia. Patient was found to have left foot wound which was managed as outpatient however since it suspicion of fracture axilla was obtained which did confirm commuted intra-articular fracture of second digit left foot. Podiatry was consulted would not recommend any invasive intervention given his comorbidities and overall debility. It would be managed as outpatient. Meanwhile is to apply postoperative shoe for protection and use heel medics put while in bed. Patient renal function returned to baseline. Patient otherwise stable to be discharged back to [facility]. He did follow-up with podiatry in 1-2 week. Home antihypertensives and metoprolol held. - Time Spent with Patient Total time spent providing and/or coordinating discharge services: - Discharge Medications Prescriptions: New Ferrous Sulfate [Iron] 325 mg PO BIDWM 30 Days #60 tablet Continued carBAMazepine [CarBAMazepine] 100 mg PO BID Tamsulosin HCl [Flomax] 0.4 mg PO DAILY Allopurinol [Zyloprim 100 MG] 100 mg PO DAILY Umeclidinium [place] [Incruse Ellipta] 1 puff PO DAILY Mirtazapine [Remeron] 15 mg PO HS Simvastatin [Zocor] 10 mg PO DAILY Fluticasone/Salmeterol [Advair 500-50 Diskus] 1 puff PO BID SitaGLIPtin [Januvia] 100 mg PO DAILY Oxybutynin Chloride [Ditropan Xl] 5 mg PO DAILY Tizanidine HCl 2 mg PO DAILY Calcium Carbonate/Vitamin D3 [Calcium 600 + Vit D Softgel] 1 tab PO BID Magnesium Oxide [Magnesium] 400 mg PO BID Menthol [Biofreeze] 1 appl TP BID PRN MDD RIGHT HEEL PRN Reason: Pain Menthol [Bengay Ultra Strength] 1 patch TP DAILY PRN MDD 12 HOURS ON PRN Reason: LEFT ANKLE PAIN Cimetidine 600 mg PO BID Albuterol Sulfate [Ventolin Hfa] 2 puff PO 0600,1200,1800 Gabapentin [Neurontin] 100 mg PO BID 3 Days #6 capsule Changed HYDROcodone/Acet 5/325 mg [[place] 5-325 mg] 1 tab PO Q8H PRN 3 Days #6 tablet PRN Reason: Pain Discontinued Furosemide [Lasix] 20 mg PO DAILY Metoprolol Tartrate [Lopressor] 50 mg PO BID Losartan Potassium [Cozaar] 100 mg PO DAILY Ibuprofen [Motrin] 400 mg PO BID Home Medications: Allopurinol [Zyloprim 100 MG] 100 mg PO DAILY 09/19/18 [History] Fluticasone/Salmeterol [Advair 500-50 Diskus] 1 puff PO BID 09/19/18 [History] Mirtazapine [Remeron] 15 mg PO HS 09/19/18 [History] Oxybutynin Chloride [Ditropan Xl] 5 mg PO DAILY 09/19/18 [History] Simvastatin [Zocor] 10 mg PO DAILY 09/19/18 [History] SitaGLIPtin [Januvia] 100 mg PO DAILY 09/19/18 [History] Tamsulosin HCl [Flomax] 0.4 mg PO DAILY 09/19/18 [History] Tizanidine HCl 2 mg PO DAILY 09/19/18 [History] Umeclidinium [place] [Incruse Ellipta] 1 puff PO DAILY 09/19/18 [History] carBAMazepine [CarBAMazepine] 100 mg PO BID 09/19/18 [History] Calcium Carbonate/Vitamin D3 [Calcium 600 + Vit D Softgel] 1 tab PO BID 11/26/18 [History] Magnesium Oxide [Magnesium] 400 mg PO BID 11/26/18 [History] Albuterol Sulfate [Ventolin Hfa] 2 puff PO 0600,1200,1800 11/27/18 [History] Cimetidine 600 mg PO BID 11/27/18 [History] Menthol [Bengay Ultra Strength] 1 patch TP DAILY PRN MDD 12 HOURS ON 11/27/18 [History] Menthol [Biofreeze] 1 appl TP BID PRN MDD RIGHT HEEL 11/27/18 [History] Ferrous Sulfate [Iron] 325 mg PO BIDWM 30 Days #60 tablet 11/29/18 [Rx] Gabapentin [Neurontin] 100 mg PO BID 3 Days #6 capsule 11/29/18 [Rx] HYDROcodone/Acet 5/325 mg [[place] 5-325 mg] 1 tab PO Q8H PRN 3 Days #6 tablet 11/29/18 [Rx] Allergies/Adverse Reactions: Allergy/AdvReac Type Severity Reaction Status Date / Time No Known Allergies Allergy Verified 11/27/18 19:09 Date of admission: 11/27/18 17:00 Primary care physician: Jarrett Guo MD Consults: 11/27/18 11:38 Consult to Wound Care [CONS] Routine Reason for Consult: Wound on left foot-toe. Sees wound care OP Call Completed: Yes 11/28/18 15:02 Consult to Podiatry [CONS] Routine Consulting Provider: [facility] Reason for Consult: lt 2nd toe fracture Call Completed: Yes Discharging clinician: Justin Sanchez - Constitutional Vitals: Temp Pulse Resp BP Pulse Ox 98.3 F 51 16 139/74 97 11/29/18 05:00 11/29/18 11:27 11/29/18 11:27 11/29/18 07:43 11/29/18 11:27 Exam: Constitutional: Vitals as noted. Conversant. No Apparent Distress. Respiratory : CTAB. No accessory muscle use, rales, rhonchi or wheezes Cardiovascular : RRR, +S1, +S2. no murmur, gallop, rubs. GI/Abdominal : Soft, Non-tender, Non-distended, no peritoneal signs. Musculoskeletal: Lt arm contracture and Lt knee contracture, no calf tenderness. Neurological: AO X3, Lt arm/leg contracuture and weakness Skin: Lt toes wound does not look infected however distal aspect of phalynx very mobile and painful on manipulation. - Patient Status Disposition: Transfer SNF Condition: Fair - Discharge Instructions Follow Up With: Da Granados DPM [Partnered Physician] - 12/12/18 9:45 am (FOLLOWUP FOR LEFT FOOT 2ND TOE FRACTURE) Jarrett Guo MD [Primary Care Provider] - - Diet and Activity Activity: as per physical therapy
[2018-11-29 17:03] VITALS: BP 149/69
--- NOTE | 2018-11-29 17:03 | Physician Discharge Referral ---
Extended[facility] Referral Info Institutional Level of Care: Skilled - Diagnosis (1) Acute renal insufficiency Status: Acute (2) Hypotension Status: Acute (3) Diabetes Status: Acute (4) HTN (hypertension) Status: Acute (5) History of CVA with residual deficit Status: Acute (6) COPD (chronic obstructive pulmonary disease) with emphysema Status: Acute (7) Left hip pain Status: Acute (8) Sinus bradycardia Status: Acute (9) DVT prophylaxis Status: Acute (10) Anemia Status: Acute (11) Fracture of toe of left foot Status: Acute - Transfer Medications Prescriptions: Ferrous Sulfate [Iron] 325 mg PO BIDWM 30 Days #60 tablet Gabapentin [Neurontin] 100 mg PO BID 3 Days #6 capsule HYDROcodone/Acet 5/325 mg [[place] 5-325 mg] 1 tab PO Q8H PRN 3 Days #6 tablet PRN Reason: Pain Home Medications: Allopurinol [Zyloprim 100 MG] 100 mg PO DAILY 09/19/18 [History] Fluticasone/Salmeterol [Advair 500-50 Diskus] 1 puff PO BID 09/19/18 [History] Mirtazapine [Remeron] 15 mg PO HS 09/19/18 [History] Oxybutynin Chloride [Ditropan Xl] 5 mg PO DAILY 09/19/18 [History] Simvastatin [Zocor] 10 mg PO DAILY 09/19/18 [History] SitaGLIPtin [Januvia] 100 mg PO DAILY 09/19/18 [History] Tamsulosin HCl [Flomax] 0.4 mg PO DAILY 09/19/18 [History] Tizanidine HCl 2 mg PO DAILY 09/19/18 [History] Umeclidinium [place] [Incruse Ellipta] 1 puff PO DAILY 09/19/18 [History] carBAMazepine [CarBAMazepine] 100 mg PO BID 09/19/18 [History] Calcium Carbonate/Vitamin D3 [Calcium 600 + Vit D Softgel] 1 tab PO BID 11/26/18 [History] Magnesium Oxide [Magnesium] 400 mg PO BID 11/26/18 [History] Albuterol Sulfate [Ventolin Hfa] 2 puff PO 0600,1200,1800 11/27/18 [History] Cimetidine 600 mg PO BID 11/27/18 [History] Menthol [[place] Ultra Strength] 1 patch TP DAILY PRN MDD 12 HOURS ON 11/27/18 [History] Menthol [Biofreeze] 1 appl TP BID PRN MDD RIGHT HEEL 11/27/18 [History] Ferrous Sulfate [Iron] 325 mg PO BIDWM 30 Days #60 tablet 11/29/18 [Rx] Gabapentin [Neurontin] 100 mg PO BID 3 Days #6 capsule 11/29/18 [Rx] HYDROcodone/Acet 5/325 mg [[place] 5-325 mg] 1 tab PO Q8H PRN 3 Days #6 tablet 11/29/18 [Rx] Allergies/Adverse Reactions: Allergy/AdvReac Type Severity Reaction Status Date / Time No Known Allergies Allergy Verified 11/27/18 19:09 - Respiratory Orders Smoking Cessation: Smoking cessation has been advised. For more information, call the [place] Tobacco Quit Line at 9-536-DDPGNOW. CERTIFICATION: I certify that the transfer of the above named patient to an Extended Care Facility is necessary for the continuing treatment of the diagnosis listed. The above information is true and accurate reflection of patient's current condition. Confidential - Redisclosure prohibited without a patient's written consent.
== END 2018-11-29 18:37 | DRG 683 ==
LOC: 2NENU 14:01 → EMEROOARM 14:01 → SUATTDRO 16:24 → 2NENU 18:33
PROVIDERS: ADMIT Internal Medicine Nephrology; ATTEND Internal Medicine

== ENCOUNTER 2019-02-15 10:50 | Inpatient (IN) ==
[2019-02-15] MEDS ORDERED: 0.9 % Sodium Chloride 500 ML IVC ONE ×2 (10:58→14:11)
[2019-02-15 11:48] LABS: Basophils % 0.1 %; Eosinophils # 0.1 K/mcL (0.0-0.6); Eosinophils % 0.4 %; Hematocrit 34.1 % (37.5-50.1); Hemoglobin 10.6 g/dL (12.9-16.9); Immature Granulocytes % 0.9 % (0-4); Lymphocytes # 1.2 K/mcL (0.6-4.6); Lymphocytes % 5.5 %; Mean Corpuscular HGB Conc 31.1 g/dL (31.6-35.5); Mean Corpuscular Hemoglobin 30.1 pg (28.0-33.3); Mean Corpuscular Volume 96.9 fL (83.0-100.0); Mean Platelet Volume 12.4 fL (9.4-12.4); Monocytes # 1.5 K/mcL (0.0-1.3); Monocytes % 7.1 %; Platelet Count 206 K/mcL (140-400); Red Blood Count 3.52 M/mcL (4.19-5.50); Red Cell Distribution Width 14.9 % (11.5-14.5)
[2019-02-15 12:07] LABS: BUN/Creatinine Ratio 27 (6-26); Blood Urea Nitrogen 33 mg/dL (8-23); Calcium 9.7 mg/dL (8.6-10.3); Carbon Dioxide 37 mEq/L (23-29); Chloride 99 mEq/L (98-107); Glucose 126 mg/dL (70-105); Osmolality,Calculated 305 (280-300); Potassium 3.6 mEq/L (3.5-5.1); Sodium 143 mEq/L (136-145); eGFR For African Americans > 60 (> 60); eGFR For Non-African Americans 57 (> 60)
[2019-02-15] MEDS ORDERED: Isovue-370 500 ML BOTTLE IVP ONE (14:12)
[2019-02-15 14:53] LABS: Alanine Aminotransferase 9 Units/L (7-52); Albumin 3.2 g/dL (3.5-5.7); Albumin/Globulin Ratio 0.9 (1.1-2.2); Alkaline Phosphatase 108 Units/L (34-104); Aspartate Amino Transferase 14 Units/L (13-39); Bilirubin,Direct 0.6 mg/dL (0.0-0.2); Bilirubin,Indirect 0.3 mg/dL (0.0-1.2); Bilirubin,Total 0.9 mg/dL (0.3-1.0); Globulin 3.5 g/dL (2.4-3.5); Lipase 10 Units/L (11-82); Total Protein 6.7 g/dL (6.4-8.9)
[2019-02-15] MEDS ORDERED: levoFLOXacin 750 MG/150 ML 750 MG/150 ML BAG IVPB ONE (15:41)
[2019-02-15] MEDS ORDERED: Piperacillin/Tazobactam 3.375 GM in 0.9 % Sodium Chloride Mini Bag 100 ML IVPB ONE (15:41)
[2019-02-15] MEDS ORDERED: Ondansetron 4 MG/2 ML VIAL IVP PRN (17:27)
[2019-02-15] MEDS ORDERED: Naloxone 0.4 MG/ML INJ IVP PRN (17:27)
[2019-02-15] MEDS ORDERED: 0.9 % Sodium Chloride 1,000 ML IVC SCH (17:30)
[2019-02-15] MEDS ORDERED: D5% in Water 1,000 ML IVC PRN (18:47)
[2019-02-15] MEDS ORDERED: *HR* Dextrose 50 % in Water (Syg) 50 ML SYRINGE IVP PRN (18:47)
[2019-02-15] MEDS ORDERED: Dextrose Gel 15 GM/37.5 ML TUBE PO PRN ×2 (18:47)
[2019-02-15] MEDS ORDERED: Methyl Salicylate/Menthol 28 GM TUBE TP PRN (18:53)
[2019-02-15] MEDS ORDERED: [UNRECOGNIZED DRUG - OTHER] TP PRN (18:53)
[2019-02-15] MEDS ORDERED: *HR* HYDROcodone/Acet 5/325 mg TABLET PO PRN (18:53)
[2019-02-15] MEDS ORDERED: *HR* HYDROcodone/Acet 5/325 mg TABLET GTUBE PRN (19:27)
[2019-02-15] MEDS: Budesonide/Formoterol 160/4.5 1 PUFF INH IH SCH (19:47)
[2019-02-15] MEDS: 0.9 % Sodium Chloride 1,000 ML IVC SCH (20:55)
[2019-02-15] MEDS ORDERED: Famotidine 20 MG TABLET PO SCH (21:00)
[2019-02-15] MEDS ORDERED: Gabapentin 100 MG CAPSULE PO SCH (21:00)
[2019-02-15] MEDS ORDERED: Mirtazapine 15 MG TABLET GTUBE SCH (21:00)
[2019-02-15] MEDS ORDERED: CarBAMazepine 100 MG TABLET PO SCH (21:00)
[2019-02-15] MEDS ORDERED: Mirtazapine 15 MG TABLET PO SCH (21:00)
[2019-02-15] MEDS ORDERED: Magnesium Oxide 400 MG TABLET PO SCH (21:00)
[2019-02-15 21:25] LABS: Basophils % 0.2 %; Eosinophils # 0.2 K/mcL (0.0-0.6); Hematocrit 33.8 % (37.5-50.1); Hemoglobin 10.4 g/dL (12.9-16.9); Immature Granulocytes % 0.8 % (0-4); Lymphocytes # 1.1 K/mcL (0.6-4.6); Lymphocytes % 4.8 %; Mean Corpuscular HGB Conc 30.8 g/dL (31.6-35.5); Mean Corpuscular Hemoglobin 30.2 pg (28.0-33.3); Mean Corpuscular Volume 98.3 fL (83.0-100.0); Mean Platelet Volume 12.4 fL (9.4-12.4); Monocytes # 1.5 K/mcL (0.0-1.3); Monocytes % 6.1 %; Neutrophils # 20.6 K/mcL (1.6-8.9); Platelet Count 189 K/mcL (140-400); Red Blood Count 3.44 M/mcL (4.19-5.50); Red Cell Distribution Width 14.8 % (11.5-14.5); Segmented Neutrophils % 87.1 %; White Blood Count 23.6 K/mcL (4.3-11.1)
[2019-02-15 21:28] LABS: BUN/Creatinine Ratio 27 (6-26); Blood Urea Nitrogen 31 mg/dL (8-23); Calcium 9.2 mg/dL (8.6-10.3); Carbon Dioxide 31 mEq/L (23-29); Chloride 104 mEq/L (98-107); Glucose 112 mg/dL (70-105); Osmolality,Calculated 301 (280-300); Potassium 3.5 mEq/L (3.5-5.1); Sodium 142 mEq/L (136-145); eGFR For African Americans > 60 (> 60); eGFR For Non-African Americans > 60 (> 60)
[2019-02-15] MEDS: CarBAMazepine 100 MG TABLET GTUBE SCH (21:29)
[2019-02-15] MEDS: Magnesium Oxide 400 MG TABLET GTUBE SCH (21:30)
[2019-02-15] MEDS: Gabapentin 100 MG CAPSULE GTUBE SCH (21:30)
[2019-02-15] MEDS: Famotidine 20 MG TABLET GTUBE SCH (21:30)
[2019-02-15] MEDS: Piperacillin/Tazobactam 3.375 GM in 0.9 % Sodium Chloride Mini Bag 100 ML IVPB SCH (23:47)
[2019-02-16] MEDS ORDERED: Milk and Molasses Enema 200 ML RC ONE (00:07)
[2019-02-16] MEDS: Insulin LISPRO 300 UNITS/3 ML VIAL SQ SCH ×5 (00:31→22:57)
[2019-02-16] MEDS ORDERED: Acetaminophen IV 500 MG/50 ML INFUS..BTL IVPB ONE (05:34)
[2019-02-16 07:34] LABS: Basophils % 0.1 %; Eosinophils # 0.1 K/mcL (0.0-0.6); Eosinophils % 0.6 %; Hematocrit 33.3 % (37.5-50.1); Hemoglobin 10.1 g/dL (12.9-16.9); Immature Granulocytes % 0.5 % (0-4); Lymphocytes # 0.7 K/mcL (0.6-4.6); Lymphocytes % 3.4 %; Mean Corpuscular HGB Conc 30.3 g/dL (31.6-35.5); Mean Corpuscular Hemoglobin 29.9 pg (28.0-33.3); Mean Corpuscular Volume 98.5 fL (83.0-100.0); Mean Platelet Volume 12.5 fL (9.4-12.4); Monocytes # 1.3 K/mcL (0.0-1.3); Neutrophils # 18.5 K/mcL (1.6-8.9); Platelet Count 191 K/mcL (140-400); Red Blood Count 3.38 M/mcL (4.19-5.50); Red Cell Distribution Width 14.7 % (11.5-14.5); Segmented Neutrophils % 89.4 %; White Blood Count 20.7 K/mcL (4.3-11.1)
[2019-02-16 07:54] LABS: BUN/Creatinine Ratio 29 (6-26); Blood Urea Nitrogen 26 mg/dL (8-23); Calcium 9.1 mg/dL (8.6-10.3); Carbon Dioxide 29 mEq/L (23-29); Chloride 105 mEq/L (98-107); Glucose 99 mg/dL (70-105); Magnesium 1.7 mg/dL (1.6-2.6); Osmolality,Calculated 305 (280-300); Phosphorous 2.3 mg/dL (2.7-4.5); Potassium 3.5 mEq/L (3.5-5.1); Sodium 145 mEq/L (136-145); eGFR For African Americans > 60 (> 60); eGFR For Non-African Americans > 60 (> 60)
[2019-02-16] MEDS: 0.9 % Sodium Chloride 1,000 ML IVC SCH (08:33)
[2019-02-16] MEDS: Piperacillin/Tazobactam 3.375 GM in 0.9 % Sodium Chloride Mini Bag 100 ML IVPB SCH ×3 (08:34→23:50)
[2019-02-16] MEDS ORDERED: tiZANidine 4 MG TABLET GTUBE SCH (09:00)
[2019-02-16] MEDS ORDERED: tiZANidine 4 MG TABLET PO SCH (09:00)
[2019-02-16] MEDS ORDERED: NON-FORMULARY MEDICATION 1 EACH EACH (Umeclidinium Bromide [Incruse Ellipta] 1 PUFF) PO SCH (09:00)
[2019-02-16] MEDS: CarBAMazepine 100 MG TABLET GTUBE SCH (09:37)
[2019-02-16] MEDS: Gabapentin 100 MG CAPSULE GTUBE SCH (09:37)
[2019-02-16] MEDS: Magnesium Oxide 400 MG TABLET GTUBE SCH (09:37)
[2019-02-16] MEDS: Famotidine 20 MG TABLET GTUBE SCH (09:38)
[2019-02-16] MEDS: Budesonide/Formoterol 160/4.5 1 PUFF INH IH SCH ×2 (10:24→22:14)
[2019-02-16] MEDS ORDERED: *HR* HYDROcodone/Acet 5/325 mg TABLET PO PRN (12:30)
[2019-02-16] MEDS: Tiotropium 18 MCG inhalation IH SCH (14:57)
[2019-02-16] MEDS: Famotidine 20 MG TABLET PO SCH (21:17)
[2019-02-16] MEDS: CarBAMazepine 100 MG TABLET PO SCH (21:17)
[2019-02-16] MEDS: Mirtazapine 15 MG TABLET PO SCH (21:17)
[2019-02-16] MEDS: Gabapentin 100 MG CAPSULE PO SCH (21:17)
[2019-02-16] MEDS: Docusate Oral Soln 100 MG/10 ML UDC PO SCH (21:17)
[2019-02-16] MEDS: Magnesium Oxide 400 MG TABLET PO SCH (21:18)
[2019-02-17 06:24] LABS: Basophils % 0.2 %; Eosinophils # 0.5 K/mcL (0.0-0.6); Eosinophils % 3.6 %; Hematocrit 28.9 % (37.5-50.1); Hemoglobin 8.9 g/dL (12.9-16.9); Immature Granulocytes % 0.5 % (0-4); Lymphocytes # 1.1 K/mcL (0.6-4.6); Lymphocytes % 8.7 %; Mean Corpuscular HGB Conc 30.8 g/dL (31.6-35.5); Mean Corpuscular Hemoglobin 29.9 pg (28.0-33.3); Mean Platelet Volume 11.9 fL (9.4-12.4); Monocytes # 0.9 K/mcL (0.0-1.3); Monocytes % 7.1 %; Neutrophils # 10.1 K/mcL (1.6-8.9); Platelet Count 196 K/mcL (140-400); Red Blood Count 2.98 M/mcL (4.19-5.50); Red Cell Distribution Width 14.6 % (11.5-14.5); Segmented Neutrophils % 79.9 %; White Blood Count 12.6 K/mcL (4.3-11.1)
[2019-02-17 06:46] LABS: BUN/Creatinine Ratio 22 (6-26); Blood Urea Nitrogen 17 mg/dL (8-23); Calcium 8.9 mg/dL (8.6-10.3); Carbon Dioxide 29 mEq/L (23-29); Chloride 104 mEq/L (98-107); Glucose 115 mg/dL (70-105); Magnesium 1.7 mg/dL (1.6-2.6); Osmolality,Calculated 294 (280-300); Phosphorous 1.9 mg/dL (2.7-4.5); Potassium 2.9 mEq/L (3.5-5.1); Sodium 141 mEq/L (136-145); eGFR For African Americans > 60 (> 60); eGFR For Non-African Americans > 60 (> 60)
[2019-02-17] MEDS ORDERED: Potassium Chloride Elixir 20 MEQ/15 ML UDC PO ONE ×2 (08:00→14:00)
[2019-02-17] MEDS ORDERED: Acetaminophen 325 MG TABLET PO PRN (08:00)
[2019-02-17] MEDS: Docusate Oral Soln 100 MG/10 ML UDC PO SCH ×2 (08:48→21:20)
[2019-02-17] MEDS: Gabapentin 100 MG CAPSULE PO SCH ×2 (08:49→21:20)
[2019-02-17] MEDS: Magnesium Oxide 400 MG TABLET PO SCH ×2 (08:49→21:19)
[2019-02-17] MEDS: Famotidine 20 MG TABLET PO SCH ×2 (08:50→21:20)
[2019-02-17] MEDS: CarBAMazepine 100 MG TABLET PO SCH ×2 (08:50→21:19)
[2019-02-17] MEDS: Piperacillin/Tazobactam 3.375 GM in 0.9 % Sodium Chloride Mini Bag 100 ML IVPB SCH ×2 (08:50→16:54)
[2019-02-17] MEDS: Insulin LISPRO 300 UNITS/3 ML VIAL SQ SCH ×4 (08:51→21:56)
[2019-02-17] MEDS ORDERED: tiZANidine 4 MG TABLET PO SCH (09:00)
[2019-02-17] MEDS: Budesonide/Formoterol 160/4.5 1 PUFF INH IH SCH ×2 (10:44→22:28)
[2019-02-17 10:45] LABS: ABG Base Excess 6 mEq/L (-2 to 3); ABG HCO3 32 mEq/L (21-27); ABG Oxygen Saturation 98 % (95-98); ABG PCO2 54 mmHg (35-45); ABG PH 7.38 pH Units (7.32-7.45); ABG PO2 117 mmHg (85-104); ABG TCO2 34 mEq/L (20-26)
[2019-02-17] MEDS: Tiotropium 18 MCG inhalation IH SCH (10:46)
[2019-02-17 11:08] LABS: Basophils % 0.2 %; Eosinophils # 0.5 K/mcL (0.0-0.6); Eosinophils % 3.9 %; Hematocrit 29.2 % (37.5-50.1); Immature Granulocytes % 0.5 % (0-4); Lymphocytes % 7.8 %; Mean Corpuscular HGB Conc 30.8 g/dL (31.6-35.5); Mean Corpuscular Hemoglobin 30.2 pg (28.0-33.3); Mean Platelet Volume 12.2 fL (9.4-12.4); Monocytes # 1.2 K/mcL (0.0-1.3); Monocytes % 8.8 %; Neutrophils # 10.4 K/mcL (1.6-8.9); Platelet Count 195 K/mcL (140-400); Red Blood Count 2.98 M/mcL (4.19-5.50); Red Cell Distribution Width 14.6 % (11.5-14.5); Segmented Neutrophils % 78.8 %; White Blood Count 13.3 K/mcL (4.3-11.1)
[2019-02-17] MEDS ORDERED: Isovue-370 500 ML BOTTLE IVP ONE (11:43)
[2019-02-17 12:00] LABS: Alanine Aminotransferase 8 Units/L (7-52); Albumin 2.7 g/dL (3.5-5.7); Albumin/Globulin Ratio 0.9 (1.1-2.2); Alkaline Phosphatase 90 Units/L (34-104); Aspartate Amino Transferase 12 Units/L (13-39); BUN/Creatinine Ratio 21 (6-26); Bilirubin,Total 0.6 mg/dL (0.3-1.0); Blood Urea Nitrogen 16 mg/dL (8-23); Calcium 9.1 mg/dL (8.6-10.3); Carbon Dioxide 29 mEq/L (23-29); Chloride 104 mEq/L (98-107); Globulin 3.1 g/dL (2.4-3.5); Glucose 110 mg/dL (70-105); Magnesium 1.7 mg/dL (1.6-2.6); Osmolality,Calculated 294 (280-300); Phosphorous 2.1 mg/dL (2.7-4.5); Potassium 3.7 mEq/L (3.5-5.1); Sodium 141 mEq/L (136-145); Total Protein 5.8 g/dL (6.4-8.9); Troponin I 0.03 ng/mL (< 0.04); eGFR For African Americans > 60 (> 60); eGFR For Non-African Americans > 60 (> 60)
[2019-02-17 12:32] LABS: INR 1.3; Prothrombin Time 14.8 Seconds (9.4-12.1)
[2019-02-17 12:46] LABS: Acetaminophen < 10 mcg/mL (10-20); Carbamazepine (Tegretol) 6 mcg/mL (4-12); Creatine Kinase 21 Units/L (30-223)
[2019-02-17 12:58] LABS: Thyroid Stimulating Hormone 1.852 mcIU/mL (0.340-5.600)
[2019-02-17] MEDS: Mirtazapine 15 MG TABLET PO SCH (21:20)
[2019-02-18] MEDS: Piperacillin/Tazobactam 3.375 GM in 0.9 % Sodium Chloride Mini Bag 100 ML IVPB SCH ×3 (00:01→16:08)
[2019-02-18 02:34] LABS: Basophils % 0.2 %; Eosinophils # 0.5 K/mcL (0.0-0.6); Eosinophils % 6.2 %; Immature Granulocytes % 0.5 % (0-4); Lymphocytes % 11.6 %; Mean Corpuscular Hemoglobin 30.1 pg (28.0-33.3); Mean Platelet Volume 12.4 fL (9.4-12.4); Monocytes % 11.5 %; Neutrophils # 5.8 K/mcL (1.6-8.9); Platelet Count 196 K/mcL (140-400); Red Blood Count 2.99 M/mcL (4.19-5.50); Red Cell Distribution Width 14.6 % (11.5-14.5); White Blood Count 8.3 K/mcL (4.3-11.1)
[2019-02-18 02:56] LABS: Alanine Aminotransferase 7 Units/L (7-52); Albumin 2.8 g/dL (3.5-5.7); Albumin/Globulin Ratio 0.9 (1.1-2.2); Alkaline Phosphatase 89 Units/L (34-104); Aspartate Amino Transferase 10 Units/L (13-39); BUN/Creatinine Ratio 18 (6-26); Bilirubin,Total 0.5 mg/dL (0.3-1.0); Blood Urea Nitrogen 13 mg/dL (8-23); Calcium 9.3 mg/dL (8.6-10.3); Carbon Dioxide 30 mEq/L (23-29); Chloride 106 mEq/L (98-107); Glucose 100 mg/dL (70-105); Magnesium 1.8 mg/dL (1.6-2.6); Osmolality,Calculated 296 (280-300); Phosphorous 1.8 mg/dL (2.7-4.5); Potassium 3.8 mEq/L (3.5-5.1); Sodium 143 mEq/L (136-145); Total Protein 5.8 g/dL (6.4-8.9); eGFR For African Americans > 60 (> 60); eGFR For Non-African Americans > 60 (> 60)
[2019-02-18] MEDS: Insulin LISPRO 300 UNITS/3 ML VIAL SQ SCH ×4 (08:34→21:35)
[2019-02-18] MEDS ORDERED: Potassium Phosphate 44 MEQ in 0.9 % Sodium Chloride 250 ML IVPB ONE (08:57)
[2019-02-18] MEDS ORDERED: tiZANidine 4 MG TABLET PO SCH (09:00)
[2019-02-18] MEDS: Famotidine 20 MG TABLET PO SCH ×2 (09:21→21:35)
[2019-02-18] MEDS: Docusate Oral Soln 100 MG/10 ML UDC PO SCH ×2 (09:21→21:35)
[2019-02-18] MEDS: Magnesium Oxide 400 MG TABLET PO SCH ×2 (09:21→21:35)
[2019-02-18] MEDS: Gabapentin 100 MG CAPSULE PO SCH ×2 (09:22→21:35)
[2019-02-18] MEDS: CarBAMazepine 100 MG TABLET PO SCH ×2 (09:22→21:34)
[2019-02-18] MEDS: tiZANidine 4 MG TABLET PO SCH (09:24)
[2019-02-18] MEDS: Tiotropium 18 MCG inhalation IH SCH (11:55)
[2019-02-18] MEDS: Budesonide/Formoterol 160/4.5 1 PUFF INH IH SCH ×2 (11:55→22:06)
[2019-02-18] MEDS: Mirtazapine 15 MG TABLET PO SCH (21:35)
[2019-02-19] MEDS: Piperacillin/Tazobactam 3.375 GM in 0.9 % Sodium Chloride Mini Bag 100 ML IVPB SCH ×3 (01:20→16:52)
[2019-02-19 05:47] LABS: Basophils % 0.4 %; Eosinophils # 0.5 K/mcL (0.0-0.6); Eosinophils % 7.3 %; Hematocrit 29.7 % (37.5-50.1); Hemoglobin 9.4 g/dL (12.9-16.9); Immature Granulocytes % 0.3 % (0-4); Mean Corpuscular HGB Conc 31.6 g/dL (31.6-35.5); Mean Corpuscular Hemoglobin 30.9 pg (28.0-33.3); Mean Corpuscular Volume 97.7 fL (83.0-100.0); Mean Platelet Volume 12.2 fL (9.4-12.4); Monocytes # 0.8 K/mcL (0.0-1.3); Monocytes % 12.1 %; Neutrophils # 4.4 K/mcL (1.6-8.9); Platelet Count 206 K/mcL (140-400); Red Blood Count 3.04 M/mcL (4.19-5.50); Red Cell Distribution Width 14.2 % (11.5-14.5); Segmented Neutrophils % 64.9 %; White Blood Count 6.9 K/mcL (4.3-11.1)
[2019-02-19 06:03] LABS: BUN/Creatinine Ratio 14 (6-26); Blood Urea Nitrogen 10 mg/dL (8-23); Calcium 9.3 mg/dL (8.6-10.3); Carbon Dioxide 32 mEq/L (23-29); Chloride 103 mEq/L (98-107); Glucose 87 mg/dL (70-105); Magnesium 1.9 mg/dL (1.6-2.6); Osmolality,Calculated 294 (280-300); Phosphorous 3.3 mg/dL (2.7-4.5); Potassium 4.1 mEq/L (3.5-5.1); Sodium 143 mEq/L (136-145); eGFR For African Americans > 60 (> 60); eGFR For Non-African Americans > 60 (> 60)
[2019-02-19] MEDS: Insulin LISPRO 300 UNITS/3 ML VIAL SQ SCH ×3 (07:53→16:49)
[2019-02-19] MEDS: CarBAMazepine 100 MG TABLET PO SCH (08:33)
[2019-02-19] MEDS: Gabapentin 100 MG CAPSULE PO SCH (08:33)
[2019-02-19] MEDS: Famotidine 20 MG TABLET PO SCH (08:34)
[2019-02-19] MEDS: tiZANidine 4 MG TABLET PO SCH (08:34)
[2019-02-19] MEDS: Magnesium Oxide 400 MG TABLET PO SCH (08:35)
[2019-02-19] MEDS: Docusate Oral Soln 100 MG/10 ML UDC PO SCH (08:43)
[2019-02-19] MEDS: Budesonide/Formoterol 160/4.5 1 PUFF INH IH SCH (09:48)
[2019-02-19] MEDS: Tiotropium 18 MCG inhalation IH SCH (09:49)
[2019-02-19 15:26] VITALS: BP 148/78
[2019-02-19] MEDS ORDERED: Aminoglycoside Consult 1 EACH MC ONE (20:09)
== END 2019-02-19 20:10 | DRG 871 ==
LOC: EMEROOARM 10:50 → 2NENU 10:50 → SUATTDRO 18:40 → 2NENU 19:02
PROVIDERS: ADMIT Internal Medicine; ATTEND Student in an Organized Health Care Education/Training Program

== ENCOUNTER 2019-07-17 03:20 | Inpatient (IN) ==
[2019-07-17] MEDS ORDERED: levoFLOXacin 750 MG/150 ML 750 MG/150 ML BAG IVPB ONE (04:55)
[2019-07-17 05:09] LABS: Bilirubin,Urine Small (Negative); Blood,Urine Trace (Negative); Clarity,Urine Turbid (Clear); Color,Urine Dark Yellow (Yellow); Glucose,Urine (UA) 100 mg/dL (Normal); Ketones,Urine Negative (Negative); Leukocyte Esterase,Urine Moderate (Negative); Nitrite,Urine Negative (Negative); PH,Urine 8.5 pH Units (5.0-8.0); Protein,Urine >=300 mg/dL (Neg-Trace); Specific Gravity,Urine 1.022 (1.010-1.025); Urobilinogen,Urine Normal (Normal)
[2019-07-17 05:12] LABS: Hyaline Casts,Urine None Seen per lpf (None-Few)
[2019-07-17 05:25] LABS: Bacteria,Urine Many per hpf (None-Few); Squamous Epithelial Cell,Urine None Seen per lpf (None-Few)
[2019-07-17 05:27] LABS: Triple Phosphate Crystal,Urine Present
[2019-07-17 05:29] LABS: RBC,Urine 0-3 per hpf (0-3)
[2019-07-17 05:36] LABS: INR 1.2; Prothrombin Time 13.8 Seconds (9.4-12.1)
[2019-07-17] MEDS: 0.9 % Sodium Chloride 1,000 ML IVC SCH ×4 (06:01→21:42)
[2019-07-17 06:38] LABS: Basophils % 0.2 %; Eosinophils # 0.1 K/mcL (0.0-0.6); Eosinophils % 0.4 %; Hematocrit 33.8 % (37.5-50.1); Hemoglobin 11.1 g/dL (12.9-16.9); Immature Granulocytes % 0.5 % (0-4); Lymphocytes # 0.6 K/mcL (0.6-4.6); Lymphocytes % 4.8 %; Mean Corpuscular HGB Conc 32.8 g/dL (31.6-35.5); Mean Corpuscular Volume 97.4 fL (83.0-100.0); Monocytes # 1.1 K/mcL (0.0-1.3); Monocytes % 8.3 %; Platelet Count 186 K/mcL (140-400); Red Blood Count 3.47 M/mcL (4.19-5.50); Red Cell Distribution Width 14.4 % (11.5-14.5); Segmented Neutrophils % 85.8 %; White Blood Count 12.8 K/mcL (4.3-11.1)
[2019-07-17 07:08] LABS: Alanine Aminotransferase 15 Units/L (7-52); Albumin 3.1 g/dL (3.5-5.7); Albumin/Globulin Ratio 0.9 (1.1-2.2); Alkaline Phosphatase 72 Units/L (34-104); Aspartate Amino Transferase 19 Units/L (13-39); BUN/Creatinine Ratio 40 (6-26); Bilirubin,Direct 0.2 mg/dL (0.0-0.2); Bilirubin,Indirect 0.3 mg/dL (0.0-1.0); Bilirubin,Total 0.5 mg/dL (0.3-1.0); Blood Urea Nitrogen 33 mg/dL (8-23); Calcium 9.4 mg/dL (8.6-10.3); Carbon Dioxide 33 mEq/L (23-29); Chloride 100 mEq/L (98-107); Globulin 3.3 g/dL (2.4-3.5); Glucose 286 mg/dL (70-105); Magnesium 1.8 mg/dL (1.6-2.6); Osmolality,Calculated 308 (280-300); Phosphorous 3.8 mg/dL (2.7-4.5); Potassium 4.2 mEq/L (3.5-5.1); Sodium 140 mEq/L (136-145); Total Protein 6.4 g/dL (6.4-8.9); Troponin I 0.05 ng/mL (< 0.04); eGFR For African Americans > 60 (> 60); eGFR For Non-African Americans > 60 (> 60)
[2019-07-17] MEDS ORDERED: Naloxone 0.4 MG/ML INJ IVP PRN (07:44)
[2019-07-17] MEDS ORDERED: Ondansetron 4 MG/2 ML VIAL IVP PRN (07:44)
[2019-07-17] MEDS ORDERED: Hyoscyamine SL 0.125 MG TAB.SUBL SL PRN (07:48)
[2019-07-17] MEDS ORDERED: Bisacodyl 10 MG RECTAL SUPPOSITORY RC PRN (07:48)
[2019-07-17] MEDS ORDERED: *HR* Dextrose 50 % in Water (Syg) 50 ML SYRINGE IVP PRN (07:54)
[2019-07-17] MEDS ORDERED: D5% in Water 1,000 ML IVC PRN (07:54)
[2019-07-17] MEDS ORDERED: Dextrose Gel 15 GM/37.5 ML TUBE PO PRN ×2 (07:54)
[2019-07-17] MEDS ORDERED: Ipratropium/Albuterol Neb 3 ML IH PRN (07:55)
[2019-07-17 08:57] LABS: Estimated Average Glucose 120 mg/dl
[2019-07-17] MEDS: *HR* HYDROcodone/Acet 5/325 mg TABLET PO PRN (09:32)
[2019-07-17] MEDS ORDERED: 0.9 % Sodium Chloride 1,000 ML ONE (09:50)
[2019-07-17] MEDS: Budesonide/Formoterol 160/4.5 1 PUFF INH IH SCH ×2 (11:23→22:36)
[2019-07-17] MEDS: CarBAMazepine 100 MG TABLET PO SCH ×2 (11:25→21:45)
[2019-07-17] MEDS: Gabapentin 100 MG CAPSULE PO SCH ×2 (11:25→21:45)
[2019-07-17] MEDS: Insulin LISPRO 300 UNITS/3 ML VIAL SQ SCH ×2 (11:27→18:34)
[2019-07-17] MEDS: cefTRIAXone 1,000 MG in Water for inj. (sterile) 10 ML IVP SCH (13:56)
[2019-07-17] MEDS: *HR* Heparin 5,000 UNIT/ML VIAL SQ SCH (17:45)
[2019-07-17] MEDS: Mirtazapine 15 MG TABLET PO SCH (21:45)
[2019-07-17] MEDS: Levalbuterol Neb 1.25 MG/3 ML IH SCH (23:01)
[2019-07-18] MEDS ORDERED: Acetaminophen IV 1,000 MG/100 ML INFUS..BTL IVPB ONE (02:27)
[2019-07-18 03:02] LABS: ABG Base Excess 6 mEq/L (-2 to 3); ABG HCO3 32 mEq/L (21-27); ABG Oxygen Saturation 97 % (95-98); ABG PCO2 52 mmHg (35-45); ABG PO2 90 mmHg (85-104); ABG TCO2 34 mEq/L (20-26)
[2019-07-18 03:29] LABS: Basophils % 0.3 %; Eosinophils # 0.2 K/mcL (0.0-0.6); Eosinophils % 1.6 %; Hematocrit 33.1 % (37.5-50.1); Hemoglobin 10.5 g/dL (12.9-16.9); Immature Granulocytes % 0.4 % (0-4); Lymphocytes # 0.7 K/mcL (0.6-4.6); Lymphocytes % 7.2 %; Mean Corpuscular HGB Conc 31.7 g/dL (31.6-35.5); Mean Corpuscular Hemoglobin 31.7 pg (28.0-33.3); Mean Platelet Volume 11.6 fL (9.4-12.4); Monocytes # 1.2 K/mcL (0.0-1.3); Monocytes % 11.7 %; Platelet Count 180 K/mcL (140-400); Red Blood Count 3.31 M/mcL (4.19-5.50); Red Cell Distribution Width 14.4 % (11.5-14.5); Segmented Neutrophils % 78.8 %; White Blood Count 10.1 K/mcL (4.3-11.1)
[2019-07-18] MEDS: Levalbuterol Neb 1.25 MG/3 ML IH SCH ×5 (03:33→19:49)
[2019-07-18 03:49] LABS: BUN/Creatinine Ratio 36 (6-26); Blood Urea Nitrogen 27 mg/dL (8-23); Calcium 8.9 mg/dL (8.6-10.3); Carbon Dioxide 28 mEq/L (23-29); Chloride 107 mEq/L (98-107); Glucose 103 mg/dL (70-105); Magnesium 1.6 mg/dL (1.6-2.6); Osmolality,Calculated 303 (280-300); Phosphorous 2.8 mg/dL (2.7-4.5); Potassium 3.9 mEq/L (3.5-5.1); Sodium 144 mEq/L (136-145); eGFR For African Americans > 60 (> 60); eGFR For Non-African Americans > 60 (> 60)
[2019-07-18] MEDS ORDERED: *HR* Metoprolol 5 MG/5 ML VIAL IVP ONE (03:56)
[2019-07-18] MEDS: Budesonide/Formoterol 160/4.5 1 PUFF INH IH SCH ×2 (08:00→19:49)
[2019-07-18] MEDS: *HR* Heparin 5,000 UNIT/ML VIAL SQ SCH (09:17)
[2019-07-18] MEDS: Insulin LISPRO 300 UNITS/3 ML VIAL SQ SCH ×4 (09:17→20:56)
[2019-07-18] MEDS: cefTRIAXone 1,000 MG in Water for inj. (sterile) 10 ML IVP SCH ×2 (09:29→12:37)
[2019-07-18] MEDS: CarBAMazepine 100 MG TABLET PO SCH ×2 (09:30→20:57)
[2019-07-18] MEDS: Gabapentin 100 MG CAPSULE PO SCH ×2 (09:30→20:56)
[2019-07-18] MEDS ORDERED: 0.9 % Sodium Chloride 1,000 ML IVC ONE (13:25)
[2019-07-18] MEDS: *HR* HYDROcodone/Acet 5/325 mg TABLET PO PRN (15:25)
[2019-07-18] MEDS: Mirtazapine 15 MG TABLET PO SCH (20:56)
[2019-07-19] MEDS: Levalbuterol Neb 1.25 MG/3 ML IH SCH ×5 (00:04→15:31)
[2019-07-19] MEDS: Insulin LISPRO 300 UNITS/3 ML VIAL SQ SCH ×5 (02:13→16:33)
[2019-07-19 04:59] LABS: Hematocrit 29.6 % (37.5-50.1); Hemoglobin 9.4 g/dL (12.9-16.9); Mean Corpuscular HGB Conc 31.8 g/dL (31.6-35.5); Mean Corpuscular Hemoglobin 31.4 pg (28.0-33.3); Mean Platelet Volume 11.5 fL (9.4-12.4); Platelet Count 175 K/mcL (140-400); Red Blood Count 2.99 M/mcL (4.19-5.50); Red Cell Distribution Width 14.2 % (11.5-14.5); White Blood Count 9.1 K/mcL (4.3-11.1)
[2019-07-19 05:14] LABS: BUN/Creatinine Ratio 36 (6-26); Blood Urea Nitrogen 24 mg/dL (8-23); Calcium 9.1 mg/dL (8.6-10.3); Carbon Dioxide 31 mEq/L (23-29); Chloride 105 mEq/L (98-107); Glucose 116 mg/dL (70-105); Osmolality,Calculated 301 (280-300); Potassium 3.5 mEq/L (3.5-5.1); Sodium 143 mEq/L (136-145); eGFR For African Americans > 60 (> 60); eGFR For Non-African Americans > 60 (> 60)
[2019-07-19] MEDS: Budesonide/Formoterol 160/4.5 1 PUFF INH IH SCH (07:27)
[2019-07-19] MEDS: Gabapentin 100 MG CAPSULE PO SCH (09:23)
[2019-07-19] MEDS: CarBAMazepine 100 MG TABLET PO SCH (09:23)
[2019-07-19] MEDS: cefTRIAXone 1,000 MG in Water for inj. (sterile) 10 ML IVP SCH (09:24)
[2019-07-19] MEDS: *HR* HYDROcodone/Acet 5/325 mg TABLET PO PRN (18:08)
[2019-07-19 19:01] VITALS: BP 137/64
== END 2019-07-19 19:32 | DRG 871 ==
LOC: EMEROOARM 03:20 → 3ANU 03:20
PROVIDERS: ADMIT Student in an Organized Health Care Education/Training Program; ATTEND Student in an Organized Health Care Education/Training Program

== ENCOUNTER 2019-07-23 17:24 | Inpatient (IN) ==
[2019-07-23] MEDS ORDERED: methylPREDNISolone 125 MG/2 ML VIAL IVP ONE (17:34)
[2019-07-23] MEDS ORDERED: Ipratropium/Albuterol Neb 3 ML IH ONE (17:35)
[2019-07-23] MEDS ORDERED: Ipratropium/Albuterol Neb 3 ML ONE (17:36)
[2019-07-23 18:05] LABS: Basophils % 0.3 %; Eosinophils # 0.4 K/mcL (0.0-0.6); Eosinophils % 3.3 %; Hemoglobin 10.5 g/dL (12.9-16.9); Immature Granulocytes % 0.5 % (0-4); Lymphocytes # 0.7 K/mcL (0.6-4.6); Lymphocytes % 6.4 %; Mean Corpuscular HGB Conc 31.8 g/dL (31.6-35.5); Mean Corpuscular Hemoglobin 31.6 pg (28.0-33.3); Mean Corpuscular Volume 99.4 fL (83.0-100.0); Mean Platelet Volume 11.7 fL (9.4-12.4); Monocytes # 1.2 K/mcL (0.0-1.3); Monocytes % 10.4 %; Neutrophils # 8.7 K/mcL (1.6-8.9); Platelet Count 254 K/mcL (140-400); Red Blood Count 3.32 M/mcL (4.19-5.50); Red Cell Distribution Width 14.4 % (11.5-14.5); Segmented Neutrophils % 79.1 %
[2019-07-23 18:12] LABS: INR 1.1; Prothrombin Time 12.6 Seconds (9.4-12.1)
[2019-07-23 18:14] LABS: Activated Partial Thrombo Time 28.3 Seconds (26.0-36.0)
[2019-07-23 18:27] LABS: BUN/Creatinine Ratio 32 (6-26); Blood Urea Nitrogen 26 mg/dL (8-23); Calcium 9.4 mg/dL (8.6-10.3); Carbon Dioxide 31 mEq/L (23-29); Chloride 104 mEq/L (98-107); Glucose 116 mg/dL (70-105); Osmolality,Calculated 300 (280-300); Potassium 4.2 mEq/L (3.5-5.1); Sodium 142 mEq/L (136-145); Troponin I 0.03 ng/mL (< 0.04); eGFR For African Americans > 60 (> 60); eGFR For Non-African Americans > 60 (> 60)
[2019-07-23] MEDS ORDERED: *HR* Heparin 5,000 UNIT/ML VIAL IVP PRN ×2 (18:32)
[2019-07-23] MEDS ORDERED: *HR* Heparin 5,000 UNIT/ML VIAL IVP ONE (18:32)
[2019-07-23] MEDS: DilTIAZem 50 MG in 0.9 % Sodium Chloride 40 ML IVC SCH (19:20)
[2019-07-23] MEDS ORDERED: Furosemide 40 MG/4 ML VIAL IVP ONE (19:25)
[2019-07-23] MEDS: Heparin 25,000 UNIT/250 ML D5W 25,000 UNIT/250 ML IV.SOLN IVC SCH (20:22)
[2019-07-23] MEDS ORDERED: Ondansetron ODT 4 MG TAB.RAPDIS SL PRN (21:04)
[2019-07-23] MEDS ORDERED: Naloxone 0.4 MG/ML INJ IVP PRN (21:04)
[2019-07-23] MEDS ORDERED: Ipratropium Neb 0.5 MG NEBULIZER IH PRN (22:53)
[2019-07-23] MEDS ORDERED: Furosemide 20 MG/2 ML VIAL IVP ONE (23:15)
[2019-07-24 02:36] LABS: Basophils % 0.1 %; Hematocrit 30.1 % (37.5-50.1); Hemoglobin 9.7 g/dL (12.9-16.9); Immature Granulocytes % 0.4 % (0-4); Lymphocytes # 0.3 K/mcL (0.6-4.6); Lymphocytes % 2.9 %; Mean Corpuscular HGB Conc 32.2 g/dL (31.6-35.5); Mean Corpuscular Hemoglobin 31.7 pg (28.0-33.3); Mean Corpuscular Volume 98.4 fL (83.0-100.0); Mean Platelet Volume 11.5 fL (9.4-12.4); Monocytes # 0.2 K/mcL (0.0-1.3); Monocytes % 2.2 %; Neutrophils # 8.5 K/mcL (1.6-8.9); Platelet Count 251 K/mcL (140-400); Red Blood Count 3.06 M/mcL (4.19-5.50); Red Cell Distribution Width 14.5 % (11.5-14.5); Segmented Neutrophils % 94.4 %
[2019-07-24 03:19] LABS: BUN/Creatinine Ratio 37 (6-26); Blood Urea Nitrogen 29 mg/dL (8-23); Calcium 9.5 mg/dL (8.6-10.3); Carbon Dioxide 33 mEq/L (23-29); Chloride 100 mEq/L (98-107); Glucose 152 mg/dL (70-105); Magnesium 1.7 mg/dL (1.6-2.6); Osmolality,Calculated 301 (280-300); Phosphorous 3.1 mg/dL (2.7-4.5); Potassium 4.5 mEq/L (3.5-5.1); Sodium 141 mEq/L (136-145); eGFR For African Americans > 60 (> 60); eGFR For Non-African Americans > 60 (> 60)
[2019-07-24] MEDS: DilTIAZem 50 MG in 0.9 % Sodium Chloride 40 ML IVC SCH (05:02)
[2019-07-24] MEDS: Insulin LISPRO 300 UNITS/3 ML VIAL SQ SCH ×3 (08:43→15:48)
[2019-07-24] MEDS: predniSONE 20 MG TABLET PO SCH (08:45)
[2019-07-24] MEDS: Furosemide 20 MG/2 ML VIAL IVP SCH (08:45)
[2019-07-24] MEDS: Gabapentin 100 MG CAPSULE PO SCH ×3 (08:45→21:22)
[2019-07-24] MEDS: CarBAMazepine 100 MG TABLET GTUBE SCH ×2 (08:45→21:21)
[2019-07-24] MEDS: Magnesium Oxide 400 MG TABLET PO SCH (08:49)
[2019-07-24] MEDS: Levalbuterol Neb 0.63 MG/3 ML IH SCH ×3 (11:28→22:32)
[2019-07-24] MEDS ORDERED: *HR* OxyCODONE Immed Rel 5 MG TABLET PO PRN (13:51)
[2019-07-24] MEDS: DilTIAZem CD (24hr) 120 MG CAP.ER.24H PO SCH (16:15)
[2019-07-25] MEDS: Heparin 25,000 UNIT/250 ML D5W 25,000 UNIT/250 ML IV.SOLN IVC SCH (00:12)
[2019-07-25] MEDS: Levalbuterol Neb 0.63 MG/3 ML IH SCH ×4 (03:52→22:45)
[2019-07-25 07:09] LABS: Basophils % 0.2 %; Eosinophils % 0.1 %; Hematocrit 29.1 % (37.5-50.1); Hemoglobin 9.4 g/dL (12.9-16.9); Immature Granulocytes % 0.5 % (0-4); Lymphocytes # 0.9 K/mcL (0.6-4.6); Lymphocytes % 10.8 %; Mean Corpuscular HGB Conc 32.3 g/dL (31.6-35.5); Mean Corpuscular Hemoglobin 31.4 pg (28.0-33.3); Mean Corpuscular Volume 97.3 fL (83.0-100.0); Mean Platelet Volume 11.6 fL (9.4-12.4); Monocytes # 1.1 K/mcL (0.0-1.3); Monocytes % 12.4 %; Neutrophils # 6.6 K/mcL (1.6-8.9); Platelet Count 245 K/mcL (140-400); Red Blood Count 2.99 M/mcL (4.19-5.50); Red Cell Distribution Width 14.1 % (11.5-14.5); White Blood Count 8.6 K/mcL (4.3-11.1)
[2019-07-25 07:26] LABS: BUN/Creatinine Ratio 40 (6-26); Blood Urea Nitrogen 29 mg/dL (8-23); Calcium 9.3 mg/dL (8.6-10.3); Carbon Dioxide 34 mEq/L (23-29); Chloride 99 mEq/L (98-107); Glucose 108 mg/dL (70-105); Magnesium 1.9 mg/dL (1.6-2.6); Osmolality,Calculated 298 (280-300); Potassium 4.3 mEq/L (3.5-5.1); Sodium 141 mEq/L (136-145); eGFR For African Americans > 60 (> 60); eGFR For Non-African Americans > 60 (> 60)
[2019-07-25] MEDS: Finasteride 5 MG TABLET PO SCH (08:12)
[2019-07-25] MEDS: Furosemide 20 MG/2 ML VIAL IVP SCH (08:12)
[2019-07-25] MEDS: predniSONE 20 MG TABLET PO SCH (08:12)
[2019-07-25] MEDS: Gabapentin 100 MG CAPSULE PO SCH ×2 (08:13→20:33)
[2019-07-25] MEDS: DilTIAZem CD (24hr) 120 MG CAP.ER.24H PO SCH (08:13)
[2019-07-25] MEDS: CarBAMazepine 100 MG TABLET GTUBE SCH ×2 (08:13→20:09)
[2019-07-25] MEDS: Magnesium Oxide 400 MG TABLET PO SCH (08:13)
[2019-07-25] MEDS: Insulin LISPRO 300 UNITS/3 ML VIAL SQ SCH ×3 (08:13→17:16)
[2019-07-25] MEDS ORDERED: Isovue-370 500 ML BOTTLE IVP ONE (10:19)
[2019-07-25] MEDS: Sennosides 8.6 MG TABLET PO SCH (20:09)
[2019-07-25] MEDS: Magnesium Oxide 400 MG TABLET GTUBE SCH (20:09)
[2019-07-26] MEDS: Levalbuterol Neb 0.63 MG/3 ML IH SCH ×4 (04:03→21:36)
[2019-07-26] MEDS: Heparin 25,000 UNIT/250 ML D5W 25,000 UNIT/250 ML IV.SOLN IVC SCH (04:45)
[2019-07-26 05:09] LABS: BUN/Creatinine Ratio 38 (6-26); Blood Urea Nitrogen 29 mg/dL (8-23); Calcium 9.4 mg/dL (8.6-10.3); Carbon Dioxide 36 mEq/L (23-29); Chloride 96 mEq/L (98-107); Glucose 108 mg/dL (70-105); Magnesium 1.9 mg/dL (1.6-2.6); Osmolality,Calculated 290 (280-300); Potassium 3.8 mEq/L (3.5-5.1); Sodium 137 mEq/L (136-145); eGFR For African Americans > 60 (> 60); eGFR For Non-African Americans > 60 (> 60)
[2019-07-26 06:34] LABS: Basophils % 0.1 %; Hematocrit 28.2 % (37.5-50.1); Hemoglobin 9.4 g/dL (12.9-16.9); Immature Granulocytes % 0.4 % (0-4); Lymphocytes % 13.5 %; Mean Corpuscular HGB Conc 33.3 g/dL (31.6-35.5); Mean Corpuscular Hemoglobin 31.4 pg (28.0-33.3); Mean Corpuscular Volume 94.3 fL (83.0-100.0); Mean Platelet Volume 11.3 fL (9.4-12.4); Monocytes # 1.1 K/mcL (0.0-1.3); Monocytes % 14.6 %; Neutrophils # 5.3 K/mcL (1.6-8.9); Platelet Count 255 K/mcL (140-400); Red Blood Count 2.99 M/mcL (4.19-5.50); Red Cell Distribution Width 13.8 % (11.5-14.5); Segmented Neutrophils % 71.4 %; White Blood Count 7.4 K/mcL (4.3-11.1)
[2019-07-26] MEDS: Magnesium Oxide 400 MG TABLET GTUBE SCH ×2 (08:23→21:15)
[2019-07-26] MEDS: CarBAMazepine 100 MG TABLET GTUBE SCH ×2 (08:23→21:19)
[2019-07-26] MEDS: Sennosides 8.6 MG TABLET PO SCH ×2 (08:23→21:15)
[2019-07-26] MEDS: predniSONE 20 MG TABLET PO SCH (08:23)
[2019-07-26] MEDS: DilTIAZem CD (24hr) 120 MG CAP.ER.24H PO SCH (08:23)
[2019-07-26] MEDS: Finasteride 5 MG TABLET PO SCH (08:24)
[2019-07-26] MEDS: Insulin LISPRO 300 UNITS/3 ML VIAL SQ SCH ×3 (08:24→16:53)
[2019-07-26] MEDS: tiZANidine 4 MG TABLET GTUBE SCH (08:24)
[2019-07-26] MEDS: Gabapentin 100 MG CAPSULE PO SCH ×2 (08:24→21:15)
[2019-07-26] MEDS: Furosemide 20 MG/2 ML VIAL IVP SCH ×2 (08:25→16:51)
[2019-07-26] MEDS: Doxycycline 100 MG CAPSULE PO SCH ×2 (14:41→21:21)
[2019-07-26] MEDS ORDERED: Warfarin perPT PO PRN (18:00)
[2019-07-26] MEDS ORDERED: *HR* Warfarin 5 MG TABLET PO ONE (18:00)
[2019-07-27 00:53] LABS: Basophils % 0.1 %; Hematocrit 30.9 % (37.5-50.1); Hemoglobin 10.1 g/dL (12.9-16.9); Immature Granulocytes % 0.4 % (0-4); Lymphocytes # 0.7 K/mcL (0.6-4.6); Lymphocytes % 8.8 %; Mean Corpuscular HGB Conc 32.7 g/dL (31.6-35.5); Mean Corpuscular Volume 97.8 fL (83.0-100.0); Mean Platelet Volume 11.8 fL (9.4-12.4); Monocytes # 1.1 K/mcL (0.0-1.3); Monocytes % 13.8 %; Neutrophils # 6.2 K/mcL (1.6-8.9); Platelet Count 252 K/mcL (140-400); Red Blood Count 3.16 M/mcL (4.19-5.50); Red Cell Distribution Width 13.6 % (11.5-14.5); Segmented Neutrophils % 76.9 %
[2019-07-27 00:59] LABS: INR 1.2; Prothrombin Time 13.1 Seconds (9.4-12.1)
[2019-07-27 01:16] LABS: BUN/Creatinine Ratio 37 (6-26); Blood Urea Nitrogen 29 mg/dL (8-23); Calcium 9.5 mg/dL (8.6-10.3); Carbon Dioxide 36 mEq/L (23-29); Chloride 94 mEq/L (98-107); Glucose 121 mg/dL (70-105); Magnesium 1.9 mg/dL (1.6-2.6); Osmolality,Calculated 289 (280-300); Sodium 136 mEq/L (136-145); eGFR For African Americans > 60 (> 60); eGFR For Non-African Americans > 60 (> 60)
[2019-07-27] MEDS: Levalbuterol Neb 0.63 MG/3 ML IH SCH ×4 (04:02→22:07)
[2019-07-27] MEDS: Heparin 25,000 UNIT/250 ML D5W 25,000 UNIT/250 ML IV.SOLN IVC SCH (07:13)
[2019-07-27] MEDS: Magnesium Oxide 400 MG TABLET GTUBE SCH ×2 (09:19→20:26)
[2019-07-27] MEDS: Sennosides 8.6 MG TABLET PO SCH ×2 (09:19→20:26)
[2019-07-27] MEDS: tiZANidine 4 MG TABLET GTUBE SCH (09:20)
[2019-07-27] MEDS: Gabapentin 100 MG CAPSULE PO SCH ×2 (09:20→20:27)
[2019-07-27] MEDS: CarBAMazepine 100 MG TABLET GTUBE SCH ×2 (09:20→20:27)
[2019-07-27] MEDS: DilTIAZem CD (24hr) 120 MG CAP.ER.24H PO SCH (09:20)
[2019-07-27] MEDS: Furosemide 20 MG/2 ML VIAL IVP SCH ×2 (09:20→16:37)
[2019-07-27] MEDS: Finasteride 5 MG TABLET PO SCH (09:20)
[2019-07-27] MEDS: predniSONE 20 MG TABLET PO SCH (09:20)
[2019-07-27] MEDS: Insulin LISPRO 300 UNITS/3 ML VIAL SQ SCH ×3 (09:21→17:35)
[2019-07-27] MEDS: Doxycycline 100 MG CAPSULE PO SCH ×2 (09:38→20:31)
[2019-07-27] MEDS ORDERED: *HR* Warfarin 5 MG TABLET PO ONE (18:00)
[2019-07-28 03:46] LABS: Hematocrit 30.9 % (37.5-50.1)
[2019-07-28] MEDS: Levalbuterol Neb 0.63 MG/3 ML IH SCH ×4 (03:52→21:59)
[2019-07-28 04:01] LABS: INR 1.2; Prothrombin Time 13.7 Seconds (9.4-12.1)
[2019-07-28] MEDS: tiZANidine 4 MG TABLET GTUBE SCH (10:48)
[2019-07-28] MEDS: Sennosides 8.6 MG TABLET PO SCH ×2 (10:48→21:18)
[2019-07-28] MEDS: DilTIAZem CD (24hr) 120 MG CAP.ER.24H PO SCH (10:48)
[2019-07-28] MEDS: Finasteride 5 MG TABLET PO SCH (10:49)
[2019-07-28] MEDS: CarBAMazepine 100 MG TABLET GTUBE SCH ×2 (10:49→21:18)
[2019-07-28] MEDS: predniSONE 20 MG TABLET PO SCH (10:49)
[2019-07-28] MEDS: Magnesium Oxide 400 MG TABLET GTUBE SCH ×2 (10:49→21:19)
[2019-07-28] MEDS: Gabapentin 100 MG CAPSULE PO SCH ×2 (10:50→21:19)
[2019-07-28] MEDS: Insulin LISPRO 300 UNITS/3 ML VIAL SQ SCH ×3 (10:50→17:40)
[2019-07-28] MEDS: Heparin 25,000 UNIT/250 ML D5W 25,000 UNIT/250 ML IV.SOLN IVC SCH (10:51)
[2019-07-28] MEDS: Doxycycline 100 MG CAPSULE PO SCH ×2 (12:11→21:22)
[2019-07-28] MEDS ORDERED: *HR* Warfarin 7.5 MG TABLET PO ONE (18:00)
[2019-07-28] MEDS: Furosemide 20 MG/2 ML VIAL IVP SCH (21:16)
[2019-07-29] MEDS: Levalbuterol Neb 0.63 MG/3 ML IH SCH ×4 (03:47→22:09)
[2019-07-29 03:53] LABS: Hematocrit 30.8 % (37.5-50.1); Hemoglobin 9.8 g/dL (12.9-16.9); Heparin anti-factor XA UFH 0.69 IU/mL (0.30-0.70)
[2019-07-29 03:54] LABS: INR 1.2; Prothrombin Time 13.7 Seconds (9.4-12.1)
[2019-07-29] MEDS: Heparin 25,000 UNIT/250 ML D5W 25,000 UNIT/250 ML IV.SOLN IVC SCH (08:05)
[2019-07-29] MEDS: Finasteride 5 MG TABLET PO SCH (08:06)
[2019-07-29] MEDS: Magnesium Oxide 400 MG TABLET GTUBE SCH ×2 (08:06→21:33)
[2019-07-29] MEDS: Sennosides 8.6 MG TABLET PO SCH ×2 (08:06→21:33)
[2019-07-29] MEDS: CarBAMazepine 100 MG TABLET GTUBE SCH ×2 (08:06→21:33)
[2019-07-29] MEDS: DilTIAZem CD (24hr) 120 MG CAP.ER.24H PO SCH (08:06)
[2019-07-29] MEDS: tiZANidine 4 MG TABLET GTUBE SCH (08:08)
[2019-07-29] MEDS: Gabapentin 100 MG CAPSULE PO SCH ×2 (08:08→21:33)
[2019-07-29] MEDS: Doxycycline 100 MG CAPSULE PO SCH ×2 (08:08→21:35)
[2019-07-29] MEDS: Insulin LISPRO 300 UNITS/3 ML VIAL SQ SCH ×3 (08:09→16:17)
[2019-07-29] MEDS ORDERED: Furosemide 20 MG/2 ML VIAL IVP SCH (09:00)
[2019-07-29] MEDS ORDERED: *HR* Warfarin 7.5 MG TABLET PO ONE (18:00)
[2019-07-29] MEDS ORDERED: *HR* Warfarin 10 MG TABLET PO ONE (18:00)
[2019-07-30] MEDS: Levalbuterol Neb 0.63 MG/3 ML IH SCH ×3 (03:57→15:43)
[2019-07-30 05:44] LABS: Hemoglobin 10.5 g/dL (12.9-16.9)
[2019-07-30 05:46] LABS: Heparin anti-factor XA UFH 0.62 IU/mL (0.30-0.70); INR 1.8; Prothrombin Time 20.1 Seconds (9.4-12.1)
[2019-07-30] MEDS: Heparin 25,000 UNIT/250 ML D5W 25,000 UNIT/250 ML IV.SOLN IVC SCH (06:03)
[2019-07-30] MEDS: Insulin LISPRO 300 UNITS/3 ML VIAL SQ SCH ×2 (08:00→12:00)
[2019-07-30] MEDS ORDERED: Furosemide 20 MG TABLET PO SCH (09:00)
[2019-07-30] MEDS: DilTIAZem CD (24hr) 120 MG CAP.ER.24H PO SCH (11:15)
[2019-07-30] MEDS: Magnesium Oxide 400 MG TABLET GTUBE SCH (11:15)
[2019-07-30] MEDS: Gabapentin 100 MG CAPSULE PO SCH (11:15)
[2019-07-30] MEDS: tiZANidine 4 MG TABLET GTUBE SCH (11:15)
[2019-07-30] MEDS: Sennosides 8.6 MG TABLET PO SCH (11:16)
[2019-07-30] MEDS: Doxycycline 100 MG CAPSULE PO SCH (11:16)
[2019-07-30] MEDS: Finasteride 5 MG TABLET PO SCH (11:16)
[2019-07-30] MEDS: CarBAMazepine 100 MG TABLET GTUBE SCH (11:17)
[2019-07-30 12:12] VITALS: BP 116/90
[2019-07-30 12:42] LABS: eGFR For African Americans > 60 (> 60); eGFR For Non-African Americans > 60 (> 60)
[2019-07-30] MEDS ORDERED: FLU Vac QV 19-20 (6Month+)/PF 0.5 ML SYRINGE IM ONE (15:15)
== END 2019-07-30 16:37 | DRG 291 ==
LOC: EMEROOARM 17:24 → 2NENU 17:24 → SUATTDRO 19:59 → 2NENU 22:14
PROVIDERS: ADMIT Family Medicine; ATTEND Internal Medicine

== ENCOUNTER 2019-08-07 14:34 | Inpatient (IN) ==
[2019-08-07] MEDS ORDERED: Ipratropium/Albuterol Neb 3 ML IH ONE (14:43)
[2019-08-07 15:40] LABS: Calcium 8.8 mg/dL (8.6-10.3); Potassium 5.6 mEq/L (3.5-5.1)
[2019-08-07 15:41] LABS: Basophils % 0.2 %; Eosinophils # 0.2 K/mcL (0.0-0.6); Eosinophils % 1.3 %; Hematocrit 26.8 % (37.5-50.1); Hemoglobin 8.4 g/dL (12.9-16.9); Immature Granulocytes % 0.7 % (0-4); Immature Platelets 7.2 % (1.1-6.1); Lymphocytes # 0.6 K/mcL (0.6-4.6); Mean Corpuscular HGB Conc 31.3 g/dL (31.6-35.5); Mean Corpuscular Hemoglobin 31.8 pg (28.0-33.3); Mean Corpuscular Volume 101.5 fL (83.0-100.0); Mean Platelet Volume 12.5 fL (9.4-12.4); Monocytes # 1.2 K/mcL (0.0-1.3); Monocytes % 8.3 %; Neutrophils # 12.7 K/mcL (1.6-8.9); Platelet Count 155 K/mcL (140-400); Red Blood Count 2.64 M/mcL (4.19-5.50); Segmented Neutrophils % 85.5 %; White Blood Count 14.9 K/mcL (4.3-11.1)
[2019-08-07 15:56] LABS: Thyroid Stimulating Hormone 2.302 mcIU/mL (0.340-5.600); Troponin I 0.36 ng/mL (< 0.04)
[2019-08-07 16:00] LABS: Bilirubin,Urine Negative (Negative); Blood,Urine Moderate (Negative); Clarity,Urine Cloudy (Clear); Color,Urine Yellow (Yellow); Glucose,Urine (UA) Normal (Normal); Ketones,Urine Negative (Negative); Leukocyte Esterase,Urine Small (Negative); Nitrite,Urine Negative (Negative); Protein,Urine 100 mg/dL (Neg-Trace)
[2019-08-07 16:06] LABS: Bacteria,Urine Present per hpf (None-Few); RBC,Urine Present per hpf (0-3); Squamous Epithelial Cell,Urine Present per lpf (None-Few); Transitional Epi Cells,Urine Present per hpf (None-Few); WBC,Urine Present per hpf (0-3)
[2019-08-07 16:07] LABS: Renal Epithelial Cells,Urine Present per hpf (None-Few)
[2019-08-07] MEDS ORDERED: *HR* OxyCODONE Immed Rel 5 MG TABLET PO PRN (18:26)
[2019-08-07] MEDS ORDERED: *HR* Metoprolol 5 MG/5 ML VIAL IVP PRN (18:33)
[2019-08-07] MEDS ORDERED: Naloxone 0.4 MG/ML INJ IVP PRN (18:36)
[2019-08-07 18:42] LABS: INR 3.6; Prothrombin Time 40.7 Seconds (9.4-12.1)
[2019-08-07] MEDS ORDERED: cefTRIAXone 1,000 MG in Water for inj. (sterile) 10 ML IVP SCH (21:00)
[2019-08-07] MEDS ORDERED: tiZANidine 4 MG TABLET PO SCH (21:00)
[2019-08-07 21:27] LABS: Hematocrit 25.6 % (37.5-50.1); Hemoglobin 8.2 g/dL (12.9-16.9)
[2019-08-07] MEDS: Insulin LISPRO 300 UNITS/3 ML VIAL SQ SCH (21:36)
[2019-08-07 21:44] LABS: Potassium 5.6 mEq/L (3.5-5.1)
[2019-08-07 21:50] LABS: Troponin I 0.26 ng/mL (< 0.04)
[2019-08-07] MEDS: MetroNIDAZOLE 500 MG/100 ML 500 MG/100 ML BAG IVPB SCH (22:03)
[2019-08-07] MEDS: Ipratropium/Albuterol Neb 3 ML IH SCH (22:21)
[2019-08-07] MEDS: Metoclopramide 10 MG/10 ML UD.LIQ GTUBE SCH (22:40)
[2019-08-07] MEDS: CarBAMazepine 100 MG TABLET GTUBE SCH (22:40)
[2019-08-07] MEDS: Magnesium Oxide 400 MG TABLET GTUBE SCH (22:41)
[2019-08-07] MEDS: *HR* OxyCODONE Immed Rel 5 MG TABLET GTUBE PRN (22:41)
[2019-08-07] MEDS: tiZANidine 4 MG TABLET GTUBE SCH (22:43)
[2019-08-08] MEDS: Ipratropium/Albuterol Neb 3 ML IH SCH (03:42)
[2019-08-08] MEDS: MetroNIDAZOLE 500 MG/100 ML 500 MG/100 ML BAG IVPB SCH (05:25)
[2019-08-08 05:53] LABS: INR 3.1; Prothrombin Time 35.2 Seconds (9.4-12.1)
[2019-08-08 05:55] LABS: Basophils % 0.2 %; Eosinophils # 0.2 K/mcL (0.0-0.6); Eosinophils % 1.5 %; Hematocrit 26.7 % (37.5-50.1); Hemoglobin 8.6 g/dL (12.9-16.9); Immature Granulocytes % 0.7 % (0-4); Lymphocytes # 0.6 K/mcL (0.6-4.6); Lymphocytes % 4.2 %; Mean Corpuscular HGB Conc 32.2 g/dL (31.6-35.5); Mean Corpuscular Hemoglobin 31.5 pg (28.0-33.3); Mean Corpuscular Volume 97.8 fL (83.0-100.0); Mean Platelet Volume 12.6 fL (9.4-12.4); Monocytes # 1.3 K/mcL (0.0-1.3); Monocytes % 9.2 %; Platelet Count 165 K/mcL (140-400); Red Blood Count 2.73 M/mcL (4.19-5.50); Red Cell Distribution Width 15.1 % (11.5-14.5); Segmented Neutrophils % 84.2 %; White Blood Count 14.2 K/mcL (4.3-11.1)
[2019-08-08 06:13] LABS: Potassium 4.9 mEq/L (3.5-5.1)
[2019-08-08] MEDS ORDERED: *HR* Metoprolol 5 MG/5 ML VIAL IVP ONE (06:56)
[2019-08-08] MEDS ORDERED: Insulin LISPRO 300 UNITS/3 ML VIAL SQ SCH (08:00)
[2019-08-08 09:18] LABS: Basophils % 0.1 %; Eosinophils # 0.2 K/mcL (0.0-0.6); Eosinophils % 1.3 %; Hematocrit 25.9 % (37.5-50.1); Hemoglobin 8.6 g/dL (12.9-16.9); Immature Granulocytes % 0.8 % (0-4); Lymphocytes # 0.6 K/mcL (0.6-4.6); Lymphocytes % 4.2 %; Mean Corpuscular HGB Conc 33.2 g/dL (31.6-35.5); Mean Corpuscular Hemoglobin 32.2 pg (28.0-33.3); Mean Platelet Volume 12.7 fL (9.4-12.4); Monocytes # 1.5 K/mcL (0.0-1.3); Monocytes % 10.7 %; Neutrophils # 11.9 K/mcL (1.6-8.9); Platelet Count 152 K/mcL (140-400); Red Blood Count 2.67 M/mcL (4.19-5.50); Red Cell Distribution Width 14.9 % (11.5-14.5); Segmented Neutrophils % 82.9 %; White Blood Count 14.4 K/mcL (4.3-11.1)
[2019-08-08] MEDS: Insulin LISPRO 300 UNITS/3 ML VIAL SQ SCH ×4 (10:13→20:48)
[2019-08-08] MEDS: Metoclopramide 10 MG/10 ML UD.LIQ GTUBE SCH ×4 (10:21→20:50)
[2019-08-08] MEDS: Docusate Oral Soln 100 MG/10 ML UDC GTUBE SCH ×2 (10:21→20:44)
[2019-08-08] MEDS: tiZANidine 4 MG TABLET GTUBE SCH ×2 (10:22→20:45)
[2019-08-08] MEDS: Magnesium Oxide 400 MG TABLET GTUBE SCH ×2 (10:22→20:45)
[2019-08-08] MEDS: DilTIAZem CD (24hr) 120 MG CAP.ER.24H PO SCH (10:22)
[2019-08-08] MEDS: Finasteride 5 MG TABLET PO SCH (10:22)
[2019-08-08] MEDS: CarBAMazepine 100 MG TABLET GTUBE SCH ×2 (10:22→20:44)
[2019-08-08] MEDS: Ampicillin/Sulbactam 1,500 MG in 0.9 % Sodium Chloride Mini Bag 100 ML IVPB SCH ×4 (10:23→20:45)
[2019-08-08] MEDS: Furosemide 20 MG/2 ML VIAL IVP SCH ×2 (10:23→18:18)
[2019-08-08] MEDS: *HR* OxyCODONE Immed Rel 5 MG TABLET GTUBE PRN ×2 (10:33→20:45)
[2019-08-08] MEDS: Levalbuterol Neb 1.25 MG/3 ML IH SCH ×3 (11:17→22:13)
[2019-08-08] MEDS ORDERED: E-Z-HD (BARIUM SULF) SUSPENSION PO ONE (11:58)
[2019-08-08] MEDS ORDERED: E-Z-PAQUE (BARIUM SULF) SUSP 1 BOTTLE PO ONE (11:58)
[2019-08-08 12:03] LABS: ABG Base Excess 18 mEq/L (-2 to 3); ABG HCO3 44 mEq/L (21-27); ABG Oxygen Saturation 99 % (95-98); ABG PCO2 60 mmHg (35-45); ABG PH 7.48 pH Units (7.32-7.45); ABG PO2 113 mmHg (85-104); ABG TCO2 46 mEq/L (20-26)
[2019-08-08] MEDS: DilTIAZem 50 MG in 0.9 % Sodium Chloride 40 ML IVC SCH (16:16)
[2019-08-08] MEDS ORDERED: *HR* Warfarin 3 MG TABLET GTUBE ONE (18:00)
[2019-08-08] MEDS ORDERED: Warfarin perPT PO PRN (18:00)
[2019-08-08] MEDS ORDERED: *HR* Warfarin 3 MG TABLET GTUBE SCH (18:00)
[2019-08-09] MEDS: Insulin LISPRO 300 UNITS/3 ML VIAL SQ SCH ×4 (00:43→18:06)
[2019-08-09] MEDS: Levalbuterol Neb 1.25 MG/3 ML IH SCH ×4 (04:04→21:43)
[2019-08-09] MEDS: Ampicillin/Sulbactam 1,500 MG in 0.9 % Sodium Chloride Mini Bag 100 ML IVPB SCH ×4 (05:30→19:08)
[2019-08-09] MEDS: DilTIAZem CD (24hr) 120 MG CAP.ER.24H PO SCH (07:46)
[2019-08-09 08:25] LABS: Hematocrit 28.5 % (37.5-50.1); Hemoglobin 9.1 g/dL (12.9-16.9); Mean Corpuscular HGB Conc 31.9 g/dL (31.6-35.5); Mean Corpuscular Volume 100.4 fL (83.0-100.0); Mean Platelet Volume 12.3 fL (9.4-12.4); Platelet Count 172 K/mcL (140-400); Red Blood Count 2.84 M/mcL (4.19-5.50); Red Cell Distribution Width 14.7 % (11.5-14.5)
[2019-08-09 08:50] LABS: Magnesium 2.6 mg/dL (1.6-2.6); Phosphorous 4.5 mg/dL (2.7-4.5)
[2019-08-09 08:51] LABS: BUN/Creatinine Ratio 60 (6-26); Blood Urea Nitrogen 76 mg/dL (8-23); Calcium 9.3 mg/dL (8.6-10.3); Carbon Dioxide 37 mEq/L (23-29); Chloride 92 mEq/L (98-107); Glucose 133 mg/dL (70-105); Osmolality,Calculated 319 (280-300); Potassium 3.8 mEq/L (3.5-5.1); Sodium 142 mEq/L (136-145); eGFR For African Americans > 60 (> 60); eGFR For Non-African Americans 55 (> 60)
[2019-08-09] MEDS ORDERED: methylPREDNISolone 125 MG/2 ML VIAL IVP ONE (08:59)
[2019-08-09] MEDS: Furosemide 20 MG/2 ML VIAL IVP SCH ×2 (09:02→18:06)
[2019-08-09] MEDS: Metoclopramide 10 MG/10 ML UD.LIQ GTUBE SCH ×4 (09:11→21:19)
[2019-08-09] MEDS: tiZANidine 4 MG TABLET GTUBE SCH ×2 (09:12→21:19)
[2019-08-09] MEDS: Finasteride 5 MG TABLET PO SCH (09:12)
[2019-08-09] MEDS: Magnesium Oxide 400 MG TABLET GTUBE SCH ×2 (09:12→21:19)
[2019-08-09] MEDS: CarBAMazepine 100 MG TABLET GTUBE SCH (09:12)
[2019-08-09] MEDS: Docusate Oral Soln 100 MG/10 ML UDC GTUBE SCH ×2 (09:12→21:18)
[2019-08-09] MEDS: DilTIAZem 50 MG in 0.9 % Sodium Chloride 40 ML IVC SCH (09:18)
[2019-08-09] MEDS ORDERED: *HR* Digoxin 0.5 MG/2 ML AMPUL IVP ONE (10:05)
[2019-08-09] MEDS ORDERED: 0.9 % Sodium Chloride 250 ML IVC ONE (10:19)
[2019-08-09] MEDS ORDERED: 0.9 % Sodium Chloride 250 ML ONE (10:23)
[2019-08-09] MEDS ORDERED: Isovue-370 500 ML BOTTLE IVP ONE (10:26)
[2019-08-09 10:36] LABS: ABG Base Excess 17 mEq/L (-2 to 3); ABG HCO3 43 mEq/L (21-27); ABG Oxygen Saturation 96 % (95-98); ABG PCO2 63 mmHg (35-45); ABG PH 7.45 pH Units (7.32-7.45); ABG PO2 79 mmHg (85-104); ABG TCO2 45 mEq/L (20-26)
[2019-08-09 10:41] LABS: Basophils % 0.3 %; Eosinophils # 0.1 K/mcL (0.0-0.6); Eosinophils % 0.6 %; Hematocrit 25.7 % (37.5-50.1); Hemoglobin 8.4 g/dL (12.9-16.9); Immature Granulocytes % 0.4 % (0-4); Lymphocytes # 0.2 K/mcL (0.6-4.6); Lymphocytes % 2.2 %; Mean Corpuscular HGB Conc 32.7 g/dL (31.6-35.5); Mean Corpuscular Hemoglobin 31.9 pg (28.0-33.3); Mean Corpuscular Volume 97.7 fL (83.0-100.0); Mean Platelet Volume 11.9 fL (9.4-12.4); Neutrophils # 9.8 K/mcL (1.6-8.9); Platelet Count 163 K/mcL (140-400); Red Blood Count 2.63 M/mcL (4.19-5.50); Red Cell Distribution Width 14.7 % (11.5-14.5); Segmented Neutrophils % 87.5 %; White Blood Count 11.2 K/mcL (4.3-11.1)
[2019-08-09 10:48] LABS: INR 2.8; Prothrombin Time 31.9 Seconds (9.4-12.1)
[2019-08-09 10:48] LABS: INR 3.1; Prothrombin Time 35.5 Seconds (9.4-12.1)
[2019-08-09 10:50] LABS: Activated Partial Thrombo Time 41.7 Seconds (26.0-36.0)
[2019-08-09 10:56] LABS: BUN/Creatinine Ratio 58 (6-26); Blood Urea Nitrogen 74 mg/dL (8-23); Carbon Dioxide 39 mEq/L (23-29); Chloride 91 mEq/L (98-107); Glucose 152 mg/dL (70-105); Osmolality,Calculated 317 (280-300); Potassium 3.7 mEq/L (3.5-5.1); Sodium 141 mEq/L (136-145); eGFR For African Americans > 60 (> 60); eGFR For Non-African Americans 54 (> 60)
[2019-08-09] MEDS ORDERED: 0.9 % Sodium Chloride 1,000 ML IVC ONE ×2 (10:59→11:06)
[2019-08-09] MEDS: *HR* OxyCODONE Immed Rel 5 MG TABLET GTUBE PRN (15:00)
[2019-08-09] MEDS: MethylPREDNISolone 40 MG/ML VIAL IVP SCH (18:07)
[2019-08-10] MEDS: Insulin LISPRO 300 UNITS/3 ML VIAL SQ SCH ×7 (00:58→21:44)
[2019-08-10] MEDS: MethylPREDNISolone 40 MG/ML VIAL IVP SCH ×3 (01:17→18:17)
[2019-08-10] MEDS: Ampicillin/Sulbactam 1,500 MG in 0.9 % Sodium Chloride Mini Bag 100 ML IVPB SCH ×4 (01:17→18:17)
[2019-08-10] MEDS: Levalbuterol Neb 1.25 MG/3 ML IH SCH ×4 (04:11→22:01)
[2019-08-10 04:26] LABS: Hematocrit 23.5 % (37.5-50.1); Hemoglobin 7.6 g/dL (12.9-16.9); Immature Granulocytes % 0.6 % (0-4); Lymphocytes # 0.3 K/mcL (0.6-4.6); Lymphocytes % 2.7 %; Mean Corpuscular HGB Conc 32.3 g/dL (31.6-35.5); Mean Corpuscular Hemoglobin 31.7 pg (28.0-33.3); Mean Corpuscular Volume 97.9 fL (83.0-100.0); Mean Platelet Volume 11.8 fL (9.4-12.4); Monocytes # 0.4 K/mcL (0.0-1.3); Monocytes % 3.8 %; Neutrophils # 8.8 K/mcL (1.6-8.9); Platelet Count 156 K/mcL (140-400); Red Cell Distribution Width 14.6 % (11.5-14.5); Segmented Neutrophils % 92.9 %; White Blood Count 9.5 K/mcL (4.3-11.1)
[2019-08-10 04:31] LABS: INR 3.7; Prothrombin Time 42.4 Seconds (9.4-12.1)
[2019-08-10 04:41] LABS: Chol/HDL Ratio 3.1 (0-4.9)
[2019-08-10 04:42] LABS: BUN/Creatinine Ratio 61 (6-26); Blood Urea Nitrogen 76 mg/dL (8-23); Calcium 9.1 mg/dL (8.6-10.3); Carbon Dioxide 38 mEq/L (23-29); Chloride 91 mEq/L (98-107); Glucose 180 mg/dL (70-105); Magnesium 2.7 mg/dL (1.6-2.6); Osmolality,Calculated 313 (280-300); Phosphorous 4.8 mg/dL (2.7-4.5); Potassium 3.7 mEq/L (3.5-5.1); Sodium 138 mEq/L (136-145); eGFR For African Americans > 60 (> 60); eGFR For Non-African Americans 57 (> 60)
[2019-08-10] MEDS: Metoclopramide 10 MG/10 ML UD.LIQ GTUBE SCH ×4 (08:10→21:43)
[2019-08-10] MEDS: Furosemide 20 MG/2 ML VIAL IVP SCH ×2 (08:10→18:17)
[2019-08-10] MEDS: *HR* Digoxin 0.25 MG TABLET PO SCH (12:04)
[2019-08-10] MEDS: DilTIAZem CD (24hr) 120 MG CAP.ER.24H PO SCH (12:05)
[2019-08-10] MEDS: CarBAMazepine 100 MG TABLET GTUBE SCH ×2 (12:05→21:43)
[2019-08-10] MEDS: Finasteride 5 MG TABLET PO SCH (12:05)
[2019-08-10] MEDS: tiZANidine 4 MG TABLET GTUBE SCH ×2 (12:05→21:43)
[2019-08-10] MEDS: Magnesium Oxide 400 MG TABLET GTUBE SCH ×2 (12:05→21:43)
[2019-08-10] MEDS: Docusate Oral Soln 100 MG/10 ML UDC GTUBE SCH ×2 (12:05→21:43)
[2019-08-10 14:37] LABS: Carbamazepine (Tegretol) 6 mcg/mL (4-12)
[2019-08-10] MEDS ORDERED: Insulin DETEMIR 100 UNIT/ML X5UNITS SQ SCH (21:00)
[2019-08-11] MEDS: Insulin LISPRO 300 UNITS/3 ML VIAL SQ SCH ×3 (00:50→12:15)
[2019-08-11] MEDS: Ampicillin/Sulbactam 1,500 MG in 0.9 % Sodium Chloride Mini Bag 100 ML IVPB SCH ×3 (00:51→12:15)
[2019-08-11 04:03] LABS: Hematocrit 22.6 % (37.5-50.1); Hemoglobin 7.4 g/dL (12.9-16.9)
[2019-08-11] MEDS: Levalbuterol Neb 1.25 MG/3 ML IH SCH ×2 (04:03→10:57)
[2019-08-11 04:09] LABS: INR 2.5; Prothrombin Time 28.5 Seconds (9.4-12.1)
[2019-08-11 04:19] LABS: BUN/Creatinine Ratio 67 (6-26); Blood Urea Nitrogen 78 mg/dL (8-23); Calcium 8.9 mg/dL (8.6-10.3); Carbon Dioxide 37 mEq/L (23-29); Chloride 94 mEq/L (98-107); Glucose 147 mg/dL (70-105); Magnesium 2.8 mg/dL (1.6-2.6); Osmolality,Calculated 318 (280-300); Phosphorous 2.9 mg/dL (2.7-4.5); Potassium 3.9 mEq/L (3.5-5.1); Sodium 141 mEq/L (136-145); eGFR For African Americans > 60 (> 60); eGFR For Non-African Americans > 60 (> 60)
[2019-08-11 04:53] LABS: Folate > 22.3 ng/mL (3.0-16.0); Vitamin B12 1287 pg/mL (250-1100)
[2019-08-11] MEDS: MethylPREDNISolone 40 MG/ML VIAL IVP SCH (06:25)
[2019-08-11] MEDS: Furosemide 20 MG/2 ML VIAL IVP SCH (08:39)
[2019-08-11] MEDS: tiZANidine 4 MG TABLET GTUBE SCH (08:40)
[2019-08-11] MEDS: Finasteride 5 MG TABLET PO SCH (08:40)
[2019-08-11] MEDS: *HR* Digoxin 0.25 MG TABLET PO SCH (08:40)
[2019-08-11] MEDS: Docusate Oral Soln 100 MG/10 ML UDC GTUBE SCH (08:40)
[2019-08-11] MEDS: Metoclopramide 10 MG/10 ML UD.LIQ GTUBE SCH ×2 (08:40→12:15)
[2019-08-11] MEDS: DilTIAZem CD (24hr) 120 MG CAP.ER.24H PO SCH (08:40)
[2019-08-11] MEDS: CarBAMazepine 100 MG TABLET GTUBE SCH (08:40)
[2019-08-11] MEDS: Magnesium Oxide 400 MG TABLET GTUBE SCH (08:41)
[2019-08-11 11:00] VITALS: BP 125/65
[2019-08-11] MEDS ORDERED: *HR* Warfarin 3 MG TABLET PO ONE (18:00)
== END 2019-08-11 13:31 | disposition hospice, inpatient (51) | DRG 871 ==
LOC: EMEROOARM 14:34 → SUATTDRO 19:17 → 2NENU 19:17 → 2NNU 08-09 12:34
PROVIDERS: ADMIT Internal Medicine; ATTEND Internal Medicine